=== PATIENT | female | born 1955 | race Caucasian/White ===

== ENCOUNTER → 2016-09-30 | Outpatient (CLI) | payer OTHER ==
[~2016-09-30] MED LIST: ALBUAER19 INH; BUPRTAB51 PO; CETI10TA10 PO; CHOL100027 PO; ESTR1CRE PV; FLAX100019 PO; GUAISYP5 PO; LORA-741 PO; SPIR25TA89 PO; SYN100 PO
--- NOTE | 2016-10-01 13:29 | MAMMOGRAPHY REPORT ---
BILATERAL DIGITAL SCREENING MAMMOGRAM TOMOSYNTHESIS WITH CAD: 09/30/2016 TECHNIQUE: Breast tomosynthesis in addition to standard 2D mammography was performed. Current study was also evaluated with a Computer Aided Detection (CAD) system. COMPARISON: Comparison is made to exams dated: 09/25/2015 mammogram, 09/19/2014 mammogram, 10/28/2011 mammogram, 11/02/2012 mammogram, 05/24/2013 mammogram, and 10/22/2010 mammogram - [facility]. BREAST COMPOSITION: The tissue of both breasts is heterogeneously dense, which may obscure small ma sses. FINDINGS: There is a possible small cluster of calcifications seen within the left central/9:[address], for which spot magnification views are recommended for further evaluation. The remainder of bot h breasts are stable compared to prior exams, without suspicious masses, calcifications, or areas of architectural distortion noted. IMPRESSION: ACR BI-RADS CATEGORY 0: INCOMPLETE EVALUATION: NEED ADDITIONAL IMAGING EVALUATION Possible cluster of calcifications in the left breast, for which additional imaging evaluation is re commended. The patient will be called to schedule an appointment. Approximately 10% of breast cancers are not detected with mammography. A negative mammographic repor t should not delay biopsy if a clinically suggestive mass is present. Evelyn Sow M.D. ah/:10/01/2016 07:51:18 Station Engineer: Donna NIEVES(Sam)(Sandy), [facility] letter sent: Addl Imaging 0 BI-RADS Code: ACR BI-RADS Category 0: Incomplete Evaluation: Need Additional Imaging Evaluation
== END | disposition home or self-care (01) ==
LOC: C.MAMM 17:27
PROVIDERS: ATTEND Internal Medicine
DX: Z12.31 Encounter for screening mammogram for malignant neoplasm of breast (principal); R92.1 Mammographic calcification found on diagnostic imaging of breast

== ENCOUNTER → 2016-10-12 | Outpatient (CLI) | payer OTHER ==
--- NOTE | 2016-10-12 12:40 | MAMMOGRAPHY REPORT ---
UNILATERAL LEFT DIGITAL DIAGNOSTIC MAMMOGRAM: 10/12/2016 CLINICAL HISTORY: Callback from screening mammogram for left breast calcifications. TECHNIQUE: Spot magnification left CC and ML views were obtained. COMPARISON: Comparison is made to exams dated: 09/30/2016 mammogram, 09/19/2014 mammogram, 09/25/2015 m ammogram, 11/18/2012 mammogram, 10/28/2011 mammogram, and 10/22/2010 mammogram - [facility]. BREAST COMPOSITION: The tissue of the left breast is heterogeneously dense, which may obscure small masses. FINDINGS: There is a small 5 mm cluster of faint calcifications in the left lower inner quadrant. On the cc view the calcifications are smudgy, and on the lateral view many of the calcifications dem onstrate layering, suggestive of benign milk of calcium. However, some of the calcifications are to o small to confirm layering. The calcifications were likely present on the August 2015 exam althou gh not clearly evident on exams prior to 2015. The calcifications are probably benign and likely re present milk of calcium. Recommend follow-up mammograms in 6 months to confirm stability. IMPRESSION: ACR-BI-RADS CATEGORY 3: PROBABLY BENIGN Small 5 mm cluster of calcifications in the left lower inner quadrant is probably benign and likely represents milk of calcium. Recommend follow-up diagnostic mammograms of the left breast in 6 month s to confirm stability on spot magnification views. The patient has been verbally notified of the results. Approximately 10% of breast cancers are not detected with mammography. A negative mammographic repor t should not delay biopsy if a clinically suggestive mass is present. Evelyn Sow M.D. ah/:10/12/2016 08:30:35 Cell Tender Helper: Amarilys NIEVES(R)(M), [facility] letter sent: Follow Up Recommended 3 BI-RADS Code: ACR-BI-RADS Category 3: Probably Benign
== END | disposition home or self-care (01) ==
LOC: C.MAMM 08:02
PROVIDERS: ATTEND Internal Medicine
DX: R92.1 Mammographic calcification found on diagnostic imaging of breast (principal)

== ENCOUNTER → 2017-02-26 | Outpatient (CLI) | payer OTHER ==
[~2017-02-26] MED LIST changes: +GADAVIST IV PRN
--- NOTE | 2017-02-26 13:31 | DIAGNOSTIC IMAGING REPORT ---
MRI OF THE BRAIN WITHOUT AND WITH IV CONTRAST CLINICAL HISTORY: SPEECH Disturbance, lt EXT PAIN mental status change COMPARISON STUDY: No previous studies for comparison. TECHNIQUE: Utilizing a 1.5 Catie magnet and dedicated coil, multiplanar, multiecho imaging of the brain was performed pre and postcontrast administration. IV administration of 5 mL of Gadavist contrast was uneventful. FINDINGS: Signal characteristics are unremarkable. Diffusion-weighted images show no acute ischemic event. Ventricular system is midline. No abnormal postcontrast enhancement IMPRESSION: Normal study. Electronically signed by: Aubrey Nunez M.D. 02/26/2017 1:30 PM Dictated Date/Time: 02/26/2017 1:27 PM
== END | disposition home or self-care (01) ==
LOC: C.MRIBC 12:20
PROVIDERS: ATTEND Nurse Practitioner
DX: R47.9 Unspecified speech disturbances (principal); M79.609 Pain in unspecified limb; R20.2 Paresthesia of skin

== ENCOUNTER → 2017-04-12 | Outpatient (CLI) | payer OTHER ==
[~2017-04-12] MED LIST changes: -GADAVIST IV PRN
--- NOTE | 2017-04-12 14:32 | MAMMOGRAPHY REPORT ---
UNILATERAL LEFT DIGITAL DIAGNOSTIC MAMMOGRAM TOMOSYNTHESIS WITH CAD: 04/12/2017 CLINICAL HISTORY: 61-year-old woman presents for follow-up the left breast with particular attention to a small grouping of microcalcifications in the lower inner quadrant which could represent benign m ilk of calcium. TECHNIQUE: Left CC and MLO 2-D and tomosynthesis images, spot magnification left CC and ML views were obtained. Current study was also evaluated with a Computer Aided Detection (CAD) system. COMPARISON: Comparison is made to exams dated: 10/12/2016 mammogram, 09/30/2016 mammogram, 09/25/2015 ma mmogram, 09/19/2014 mammogram, 11/02/2012 mammogram, and 10/28/2011 mammogram - [facility]. BREAST COMPOSITION: There are scattered areas of fibroglandular density in the left breast. FINDINGS: The parenchymal pattern of the left breast is similar to prior mammograms. No new suspicio us mass, developing asymmetry or focal area of architectural distortion is identified. Again noted i s a small, 5 mm grouping of punctate microcalcifications in the lower inner middle one third of the l eft breast. The microcatheter calcifications appear indistinct and smudgy on the spot magnification CC view, and some demonstrate tea cupping on the spot magnification ML view, suggesting benign milk o f calcium. These appear similar in number and configuration comparing to the prior spot magnificatio n views. Given that not all of the calcifications demonstrate layering, another short interval follo w-up diagnostic mammogram including spot magnification views is recommended to ensure longer stabilit y in 6 months. Annual right mammography will also be due at that time. IMPRESSION: ACR-BI-RADS CATEGORY 3: PROBABLY BENIGN The 5 mm grouping of microcalcifications in the lower inner quadrant of the left breast probably repr esents benign milk of calcium, given the smudgy appearance on the CC view and some demonstrate layeri ng on the spot magnification ML view. Another short interval follow-up left diagnostic mammogram inc luding spot magnification views is recommended in 6 months, to ensure longer stability. Annual right mammography will be due at that time. These results and recommendations were discussed with the patient at the time of the exam. Approximately 10% of breast cancers are not detected with mammography. A negative mammographic report should not delay biopsy if a clinically suggestive mass is present. Charlotte Pulido M.D. ay/:04/12/2017 08:45:33 Inorganic Chemistry Teacher: Enedelia MAZARIEGOS)(Sandy), [facility] letter sent: Follow Up Recommended 3 BI-RADS Code: ACR-BI-RADS Category 3: Probably Benign
== END | disposition home or self-care (01) ==
LOC: C.MAMM 07:40
PROVIDERS: ATTEND Internal Medicine
DX: R92.0 Mammographic microcalcification found on diagnostic imaging of breast (principal)

== ENCOUNTER → 2017-10-13 | Outpatient (CLI) | payer OTHER ==
--- NOTE | 2017-10-13 15:24 | MAMMOGRAPHY REPORT ---
BILATERAL DIGITAL DIAGNOSTIC MAMMOGRAM TOMOSYNTHESIS WITH CAD AND TARGETED LEFT ULTRASOUND: 10/13/2017 CLINICAL HISTORY: 62-year-old woman presents for follow-up of a small grouping of microcalcifications in the left breast. Also due for annual bilateral screening mammography. She also reported sporadi c episodes of wetness on her shirt upon waking up, that she is unsure if it represents sweats or nipp le discharge. TECHNIQUE: Bilateral breast tomosynthesis in addition to standard 2D mammography was performed. Spot magnification left CC and ML views were also obtained. Current study was also evaluated with a Comp uter Aided Detection (CAD) system. COMPARISON: Comparison is made to exams dated: 04/12/2017 mammogram, 10/12/2016 mammogram, 09/30/2016 ma mmogram, 09/25/2015 mammogram, 09/19/2014 mammogram, and 11/02/2012 mammogram - [facility]. BREAST COMPOSITION: There are scattered areas of fibroglandular density in both breasts. FINDINGS: The glandular pattern is similar to prior mammograms. No new masses, calcifications, areas of architectural distortion or asymmetries are identified bilaterally. The spot magnification views of the left breast redemonstrate a small cluster of microcalcifications in the lower inner anterior breast, measuring 5 mm. The morphology is somewhat smudgy in the CC projection but not all of the ca lcifications demonstrate layering in the ML projection to confirm benign milk of calcium. When domingo ring to prior spot magnification views, the calcifications appear unchanged in number and distributio n dating back to 10/12/2016, therefore likely benign. However, the patient reported possible left nipple discharge and if further evaluation with ultrasoun d was performed in the periareolar left breast. Real-time targeted high-resolution ultrasound was pe rformed in the periareolar and retroareolar left breast. Sonographically normal tissue is seen witho ut a discrete solid or cystic mass. IMPRESSION: ACR-BI-RADS CATEGORY 3: PROBABLY BENIGN, TARGETED ULTRASOUND ACR-BI-RADS CATEGORY 3: PRO BABLY BENIGN 1. Stable bilateral mammograms including a stable small 5 mm cluster of punctate and amorphous micro calcifications in the lower inner anterior left breast. Given that these microcalcifications have be en stable over the past year based on spot magnification views they are probably benign would typical ly recommend a 12 month follow-up diagnostic exam including spot magnification views to ensure long-t erm stability. 2. However, the patient reported possible left nipple discharge, and given that calcifications can r epresent a papilloma which could explain nipple discharge, if this is true nipple discharge I would r ecommend biopsy of the calcifications. Clinical follow-up is therefore needed to decipher between th e two and consider possible need for biopsy. These results and recommendations were discussed with the patient at the time of the exam. Approximately 10% of breast cancers are not detected with mammography. A negative mammographic report should not delay biopsy if a clinically suggestive mass is present. Charlotte Pulido M.D. ay/:10/13/2017 12:54:06 Tanning Consultant: Amarilys NIEVES(R)(Sandy), [facility] letter sent: Follow Up Recommended 3 BI-RADS Code: ACR-BI-RADS Category 3: Probably Benign Ultrasound BI-RADS: ACR-BI-RADS Category 3: Pr obably Benign
== END | disposition home or self-care (01) ==
LOC: C.MAMM 07:52
PROVIDERS: ATTEND Internal Medicine
DX: Z09 Encounter for follow-up examination after completed treatment for conditions other than malignant neoplasm (principal); R92.0 Mammographic microcalcification found on diagnostic imaging of breast

== ENCOUNTER 2024-09-12 07:23 | Inpatient (IN) ==
--- OUTSIDE RECORDS SUMMARY | 2024-09-12 07:31 | External Medical Summary | Summary of Care ---
Author Name Unknown Organization [facility] Address [address] [facility] [place] [address] Phone [phone] Care Team Providers Care Reconstructive Dentist Name Role Phone Em Fleming MD Primary Care Provider [phone] Reason for Visit * Reason Comments Follow Up Encounter Details Date Type Department Care Team (Latest Contact Info) Description 09/01/2024 10:20 AM EST Office Visit General Internal Medicine [facility] [address] [place] [address] Em Fleming MD 200 [facility] [place] [address] Upper respiratory tract infection, unspecified type*; Sore throat (viral); Sicca syndrome with keratoconjunctivitis (HCC); Intermittent asthma with reliever use up to twice per week, uncomplicated; Rhinitis, nonallergic; Postmenopausal atrophic vaginitis; Fibromyalgia; Chronic frontal sinusitis; Acquired hypothyroidism; Migraine without aura and without status migrainosus, not intractable; Deviated nasal septum; Snoring; Hyperlipidemia with target LDL less than 100; Encounter for long-term (current) use of medications; Secondary adrenal insufficiency (HCC); Degeneration of intervertebral disc of lumbar region with discogenic back pain and lower extremity pain Allergies Active Allergy Reactions Criticality Noted Date Comments Hydroxyzine 01/31/2020 Swelling of hands and feet Bee Stings 06/08/2010 Local swelling and puffiness, eyes turn yellow Chromium 01/09/2009 Hands swell and turn red and pt got hot all over Naltrexone-Bupropion Hcl Er Edema face/lips/tongue High 05/29/2023 Woozy, dizzy, blurry vision Duloxetine Hcl Other (Please comment) 11/02/2023 Headache, jaundice eyes Dog Dander 06/08/2012 Blows up all over Gabapentin Other (Please comment) 12/25/2019 Blurring of vision Iodinated Contrast Media 06/08/2010 IV site bubbled up and broke out Loratadine 10/18/2000 swelling, red rash Molds & Smuts 06/08/2012 Blows up with swelling Nickel High 10/27/2023 Other Reaction(s): WELTS Shellfish Allergy Hives 02/24/2017 Dizziness, nausea/vomiting, rash/hives with lobster age 18 Sulfa Antibiotics 10/18/2000 swelling, rash documented as of this encounter (statuses as of 09/06/2024) Medications Polyethyl Glyc-Propyl Glyc PF 0.4-0.3 % Ophthalmic Solution Instill into eye as needed for Other ( NEEDED). Active Pazeo 0.7 % Ophthalmic Solution (Olopatadine HCl) Instill into eye as needed for Other ( NEEDED). Active Lidocaine 5 % External Patch (Lidoderm) apply 1 patch TO THE AFFECTED AREA DAILY. LEAVE ON FOR 12 HOURS AND THEN OFF FOR 12 HOURS. 30 Patch 3 Active Additional Information Patient taking differently: apply 1 patch TO THE AFFECTED AREA NEEDED. LEAVE ON FOR 12 HOURS AND THEN OFF FOR 12 HOURS., Reported on 09/01/2024 Synthroid 75 MCG Oral Tablet Take 1 Tablet by mouth daily first thing in the morning. Active B-12 100 MCG Oral Tablet Take 1,000 mcg by mouth in the morning. 2 GUMMIES. Active ProAir HFA 108 (90 Base) MCG/ACT Inhalation Aerosol SolutionIndicatio ns:Cough USE 2 INHALATIONS EVERY 4 HOURS NEEDED FOR COUGH, SHORTNESS OF BREATH OR WHEEZING 51 g 1 024 Active Bromfenac Sodium 0.07 % Ophthalmic Solution INSTILL 1 DROP IN EACH EYE EVERY DAY 024 Active Vitamin D3 50 MCG (1999 UT) Oral Tablet Chewable Take by mouth. Active Zepbound 2.5 MG/0.5ML Subcutaneous Solution Auto-injector (Tirzepatide-Weig ht Management)Indica tions:Class 1 obesity due to excess calories with body mass index (BMI) of 30.0 to 30.9 in adult, unspecified whether serious comorbidity present Inject 2.5 mg under the skin once a week. 6 mL 1 024 Active DULoxetine HCl 30 MG Oral Capsule Delayed Release Particles (Cymbalta) Take by mouth. Acti ve Hydrocortisone 5 MG Oral Tablet (Cortef)Indicatio ns:Secondary adrenal insufficiency (HCC) Take 1.5 Tablets by mouth in the morning. 025 Active Pregabalin 50 MG Oral Capsule (Lyrica)Indicatio ns:Degeneration of intervertebral disc of lumbar region with discogenic back pain and lower extremity pain Take 1 Capsule by mouth at bedtime. In 1 week increase to twice a day 60 Capsule 2 025 Active Hydrocortisone 5 MG Oral Tablet (Cortef) Take 1 Tablet by mouth in the morning and 1 Tablet before bedtime. 1/2 tablet in morning. 024 2024 Discontinued documented as of this encounter (statuses as of 09/06/2024) Active Problems Problem Noted Date Diagnosed Date Fibromyalgia 08/01/2019 Postmenopausal atrophic vaginitis 06/17/2018 Snoring 12/23/2017 Intermittent asthma with rel iever use up to twice per week, uncomplicated 08/17/2017 Rhinitis, nonallergic 01/07/2016 Deviated nasal septum 08/01/2003 Chronic frontal sinusitis 08/01/2003 Adverse reaction to food 08/01/2003 Acquired hypothyroidism 08/08/2001 Migraine without aura and wi thout status migrainosus, not intractable 08/08/2001 Sicca syndrome with keratoconjunctivitis documented as of this encounter (statuses as of 09/06/2024) Resolved Problems Problem Noted Date Diagnosed Date Resolved Date Side effect of medication 05/29/2023 BMI 31.0-31.9,adult 12/03/2017 04/13/20 Mild persistent asthma without complication 01/07/2016 08/17/2017 Gastroesophageal reflux dise ase without esophagitis 01/07/2016 05/15/2020 Kidney disease, chronic, sta ge III (GFR 30-59 ml/min) 12/16/2015 12/19/2018 Overview: Per CKD protocol #1 Kidney disease, chronic, sta ge III (GFR 30-59 ml/min) 02/01/2014 05/24/2014 ADVANCE DIRECTIVE INFORMATION 02/27/2010 07/03/2024 Overview (02/27/2010): No, Advance Directive brochure given to patient. Vitamin D deficiency 01/15/2009 021 Dysfunction of eustachian tube 06/16/2008 06/30/2008 Moderate episode of recurren t major depressive disorder 01/15/2005 07/05/2024 NONALLERGIC RHINITIS 08/01/2003 017 documented as of this encounter (statuses as of 09/06/2024) Immunizations Name Administration Dates Next Due COVID-19 mRNA, LNP-s, No Pre serve, 2-Dose Series ([employer] 11/27/2020,10/29/2020 Pneumococcal Conjugate Vacci ne, 20-valent ([id number]) 03/12/2022 Pneumococcal Polysaccharide PPV23 (Pneumovax) 12/03/2017 Seasonal Influenza Vac., MDV , IM, 0.5 mL (Fluzone) 06/07/2015,06/11/2014,06/14/2013,06/15,06/28/2011,06/03/2009,06/28/2007 Seasonal Influenza, MDCK, Tr ivalent, PF, (Flucelvax) 07/17/2017 Seasonal Influenza, PF, 6 M & above, IM , (FluLaval or Fluzone) 06/22/2019 Seasonal Influenza, QUAD, wi th Preserv, 6 mons & Above, 0.5 mL, IM 04/30/2020 Seasonal Influenza, Quadriva lent, No Preserve, IM 06/26/2016 TDAP (age 10 and older)(Boostrix) 03/31/2012 TDAP, Age 7 and older, IM (Adacel) 02/15/2006 documented as of this encounter Social History Tobacco Use Types Packs/Day Years Used Date Smoking Tobacco: Never Smokeless Tobacco: Never Comments:no passive smoke at home/parents smoked in her childhood Alcohol Use Standard Drinks/Week Comments Yes 0 (1 standard drink = 0.6 oz pur e alcohol) rare - one/month PHQ-2 Answer Date Recorded PHQ Adult Total Score 1 06/27/2024 Hunger Vital Sign Answer Date Recorded Worried About Running Out of Food in the Last Ye ar Never true 04/29/2020 Ran Out of Food in the Last Year Never true 04/29/2020 Childcare Answer Date Recorded Do you feel overwhelmed with taking care of a child, family member or friend? No 05/29/2023 Does your family need help f inding childcare? (Household - for ages 0-17 years) Not on file 05/29/2023 Clothing Answer Date Recorded Have you been unable to get clothing when it was really needed? No 05/29/2023 Is your family able to get c lothes or diapers when needed? (Household - for ages 0-17 years) Not on file 05/29/2023 Personal Safety Answer Date Recorded Do you feel unsafe or have concerns for your saf ety? No 05/29/2023 Do you have concerns for you r family's safety? (Household - for ages 0-17 years) Not on file 05/29/2023 Utilities Answer Date Recorded Do you have trouble paying y our heating, water, or electric bill? No 05/29/2023 Is your family able to pay t he heat, water, or electric bill? (Household - for ages 0-17 years) Not on file 05/29/2023 Does your family have access to good internet? (Household - for ages 0-17 years) Not on file 05/29/2023 Employment Status Answer Date Recorded Are you unemployed or without regular income? No 05/29/2023 Does the household have a re gular source of income? (Household - for ages 0-17 years) Not on file 05/29/2023 Social Connections Answer Date Recorded How often do you feel lonely or isolated from those around you? Sometimes 05/29/2023 Financial Resource Strain Answer Date R ecorded Do you have any trouble payi ng for your medications, or do you think you might in the future? No 05/29/2023 Does your family have troubl e paying for medicine? (Household - for ages 0-17 years) Not on file 05/29/2023 Transportation Needs Answer Date Record ed READ ONLY Do you have troubl e getting a ride to medical visits or work? Never True 05/29/2023 Does your family have a hard time getting a ride to doctors visits? (Household - for ages 0-17 years) Not on file 05/29/2023 Has lack of transportation k ept you from medical appointments, meetings, work, or from getting things needed for daily living? Check all that apply. (Adult - for ages 18 years and over) Not on file 05/29/2023 Do you (or your family) have trouble finding or paying for a ride (transportation)? (Household - for ages 0-17 years) Not on file 05/29/2023 Housing Stability Answer Date Recorded Do you currently live in a s helter or have no steady place to sleep at night? No 05/29/2023 READ ONLY Do you think you a re at risk of becoming homeless? No 05/29/2023 Does your family worry about paying for your home or becoming homeless? (Household - for ages 0-17 years) Not on file 0 05/29/2023 Are you homeless or worried that you might be in the future? (Adult - for ages 18 years and over) Not on file Are you (or your family) beatrice eless or worried that you might be in the future? (Household - for ages 0-17 years) Not on file Food Insecurity Answer Date Recorded Do you need food for this week? No 05/29/2023 Are you able to get enough f ood for your family? (Household - for ages 0-17 years) Not on file 05/29/2023 Does your family need food t his week? (Household - for ages 0-17 years) Not on file 05/29/2023 Do you always have enough fo od for your family? 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 Not on file Not on file Not on fi le Not on file Not on file Not on file Not on file documented as of this encounter Last Filed Vital Signs Vital Sign Reading Time Taken Comments Blood Pressure 102/70 09/01/2024 10:15 AM EST Pulse 93 09/01/2024 10:15 AM EST Temperature 37.5 C (99.5 F) 09/01/2024 10:[address] Respiratory Rate 18 09/01/2024 10:15 AM EST Oxygen Saturation 98% 09/01/2024 10:15 AM EST Inhaled Oxygen Concentration - - Weight 76.8 kg (169 lb 6.4 oz) 09/01/2024 10:15 AM EST Height 165.1 cm (5' 5") 09/01/2024 10:15 AM EST Body Mass Index 28.19 09/01/2024 10:15 AM EST documented in this encounter Progress Notes * Em Fleming MD - 09/01/2024 10:32 AM EST Images from the original note were not included. History of Present Illness Payton Lai is a 68 year old female that presents for Follow Up 68 year-old female with PMH significant for hypothyroidism, chronic sinusitis, depression,HH with Gerd presents here for recheck. Acute concern :- -discuss recent health events, discuss medication, and pain management -interim had multiple steroid injections and some oral courses for joint pain and arthritis and bulging disc with radiculopathy was diagnosed with secondary adrenal insufficiency due to multiple steroid and on hydrocortisone which is helping a lot. Seen and being followed by endo at [facility] to have back pain radiating to her Rt hip and leg with numbness . Worse in an and at night . Injections been not much helpful . Didn't tolerate gabapentin -cold for last 5 days and chest tightness since last night Interimmedical history : as above Watching diet and exercise : not much Routine labs : due Routine HM : not uptodate on vaccines Chronic medical problem: reviewed and stable Viral Upper Respiratory Infection This is a new problem. The current episode started in the past 7 days (5 days). The problem has been gradually worsening. There has been no fever. Associated symptoms include chest pain (tightness), congestion, coughing, ear pain (left), headaches, joint pain, rhinorrhea, sinus pain, sneezing, a sore throat and wheezing. Pertinent negatives include no diarrhea. Associated symptoms comments: Bodyaches . She has tried increased fluids, acetaminophen and decongestant for the symptoms. The treatment provided no relief. Physical Exam Vitals: 09/01/24 1015 Temp: 99.5 F (37.5 C) Pulse: 93 Resp: 18 SpO2: 98% BP: 102/70 BMI: 28.19 Physical Exam Constitutional: General: She is not in acute distress. Appearance: Normal appearance. HENT: Head: Normocephalic. Right Ear: Ear canal and external ear normal. Left Ear: Ear canal and external ear normal. Nose: Congestion and rhinorrhea present. Mouth/Throat: Mouth: Mucous membranes are moist. Pharynx: Posterior oropharyngeal erythema present. No oropharyngeal exudate. Cardiovascular: Rate and Rhythm: Normal rate and regular rhythm. Heart sounds: No murmur heard. No gallop. Pulmonary: Effort: Pulmonary effort is normal. Breath sounds: No stridor. Wheezing present. No rhonchi. Chest: Chest wall: No tenderness. Abdominal: General: There is no distension. Palpations: Abdomen is soft. There is no mass. Tenderness: There is no abdominal tenderness. Musculoskeletal: General: No swelling or tenderness. Cervical back: No rigidity or tenderness. Lymphadenopathy: Cervical: No cervical adenopathy. Neurological: Mental Status: She is alert. I have reviewed the following results: Assessment and Plan Upper respiratory tract infection, unspecified type Natural course of viral infection discussed Conservative measures like rest, fluid, humidifier in room Saline nasal drop 2-3 times a day OTC decongestant for congestion Tylenol every 6 hours for fever Mucinex twice a day with a glass of water - RESPIRATORY PATHOGEN PANEL, PCR; Future - RESPIRATORY PATHOGEN PANEL, PCR Await PCR reuslt Sore throat (viral) - GROUP A STREP PCR Sicca syndrome with keratoconjunctivitis (HCC) Intermittent asthma with reliever use up to twice per week, uncomplicated Now flared up with cold Reminded to take albuterol through spacer every hours Rhinitis, nonallergic Flonase Postmenopausal atrophic vaginitis Fibromyalgia Chronic frontal sinusitis Acquired hypothyroidism - TSH; Future Migraine without aura and without status migrainosus, not intractable Deviated nasal septum Snoring Hyperlipidemia with target LDL less than 100 - COMPREHENSIVE METABOLIC PANEL; Future - LIPID PANEL WITH DIRECT LDL IF TG IS HIGH; Future Encounter for long-term (current) use of medications - HEMOGLOBIN A1C; Future Secondary adrenal insufficiency (HCC) Being managed by endo Degeneration of intervertebral disc of lumbar region with discogenic back pain and lower extremity pain Can increase Cymbalta if needed I have reviewed the patients controlled substance dispensing history in the Prescription Drug Monitoring Program in compliance with the [facility] regulations before prescribing a controlled substance. - Pregabalin 50 MG Oral Capsule (Lyrica); Take 1 Capsule by mouth at bedtime. In 1 week increase totwice a day Wrap-Up Time: I spent a total of 40-54 minutes (exact time 45 mins) on the date of service in preparation, delivery, and documentation of the care provided to Payton Lai excluding any time spent in the performance of separately billed services. documented in this encounter Nursing Notes * Mima Wilburn CMA - 09/01/2024 10:08 AM EST Pt here for follow up. Pt would like to discuss recent health events, discuss medication, and pain management Pt is c/o cold symptoms. Productive cough, sinus drainage, sore throat, chest feels heavy, headaches, fever, since last Wednesday. Pt taking Tylenol. Pt denies taking an at home COVID test Respiratory panel and strep A complete documented in this encounter Plan of Treatment Upcoming Encounters Date Type Department Care Team (Late st Contact Info) Description 10/25/2024 11:20 AM EST Nutrition Services Nutrition & Weight Management, [facility] [address] [place] [address] Nae Carrillo RDN [address] [place] [address] 12/01/2024 9:40 AM EDT Office Visit General Internal Medicine [facility] [place] [address] [place] [address] Em Fleming MD [address] [facility] [place] [address] 12/26/2024 9:40 AM EDT Office Visit General Internal Medicine [facility] [place] [address] [facility] [place] [address] Em Fleming MD [address] [facility] [place] [address] 01/15/2025 12:50 PM EDT Office Visit Dermatology [facility] [place] [address] [place] [address] Edilma Maier PA-C [address] [place] [address] 03/30/2025 9:15 AM EDT Office Visit Dermatology [facility] [place] [address] [facility] [place] [address] Salvatore Preciado MD [address] [facility] [place] [address] Scheduled Procedures Name Priority Associated Diagnoses Date/Ti me COLONOSCOPY FLEXIBLE PROXIMA L DIAGNOSTIC Recall History of colonic polyps Health Maintenance Due Date Last Done Comments Cologuard 2000 Fecal Occult Blood Test 2000 Sigmoidoscopy 2000 Zoster Vaccines (1 of 2) 2005 Adult Wellness Visit 2021 DTap/Tdap Vaccines (3 - Td or Tdap) 03/31/2022 03/31/2012, 02/15/2006 Influenza Vaccine (FLU shot) (#1) 2024 04/30/2020, 06/22/2019, 07/17/2017, Additional history exists Depression Screening 06/27/2025 06/27/2024 Mammogram 07/17/2025 07/17/2024, 06/30, 07/12/2023, Additional history exists TSH 09/05/2025 09/05/2024, 04/2023, 05/25/2023, Additional history exists Colonoscopy 03/12/2027 03/12/2020, 02/27, 06/21/2009 Colorectal Cancer Screening 03/12/2027 Diabetes Screening 09/05/2027 09/05/2024, 0 09/05/2024, 08/13/2023, Additional history exists DXA Scan 10/15/2027 10/15/2020, 09/30, 07/13/2012, Additional history exists Lipid Panel 09/05/2029 09/05/2024, 02/27, 03/19/2022, Additional history exists COVID-19 Vaccine Discontinued 11/27/2020, 10/29/2020 Pneumococcal Vaccine: 50+ Years Completed 03/12/2022, 12/03/2017 HPV (Gardasil) Vaccine Aged Out No lo nger eligible based on patient's age to complete this topic Hepatitis B Vaccine Aged Out No longe r eligible based on patient's age to complete this topic MENINGOCOCCAL (MENACTRA/MENVEO) Aged Out No longer eligible based on patient's age to complete this topic documented as of this encounter Medical Devices Not on filedocumented as of this encounter Procedures Procedure Name Priority Date/Time Associated Diagnosis Comments RESPIRATORY PATHOGEN PANEL, PCR Routine 09/01/2024 10:56 AM EST Upper respiratory tract infection, unspecified type GROUP A STREP PCR Routine 09/01/2024 10: 56 AM EST Sore throat (viral) documented in this encounter Results * (ABNORMAL) TSH (09/05/2024 11:20 AM EST) TSH 10.80(H) 0.27 - 4.20 uIU/mL 09/05/2024 9:17 PM EST LABORATORY [facility] Blood Venous blood specimen / Unknown Venipuncture / Unknown 09/05/2024 11:20 AM EST 09/05/2024 11:20 AM EST Em Fleming MD LAB BLOOD ORDERABLES Final Res ult Performing Organization Address [facility] de Phone Number LABORATORY [facility] [address] [place] [address] * HEMOGLOBIN A1C (09/05/2024 11:20 AM EST) Hemoglobin A1C 5.5 4.0 - 5.6 % 09/05/2024 6:29 PM EST LABORATORY [facility] Comment:The use of HbA1c to monitor glycemic status is based on normal hemoglobin and HbA composition. This test should not be used in patients with abnormal hemoglobin that affects the half life of the red blood cell or the in vivo glycation rates. Estimated Average Glucose 111 <126 mg/dL 09/05/2024 6:29 PM EST LABORATORY [facility] Blood Venous blood specimen / Unknown Venipuncture / Unknown 09/05/2024 11:20 AM EST 09/05/2024 11:20 AM EST Em Fleming MD LAB BLOOD ORDERABLES Final Res ult Performing Organization Address [facility] de Phone Number LABORATORY [facility] [address] [place] [address] * (ABNORMAL) LIPID PANEL WITH DIRECT LDL IF TG IS HIGH (09/05/2024 11:20 AM EST) Triglycerides 116 <=174 mg/dL 09/05/2024 8:31 PM EST LABORATORY [facility] Comment: Triglyceride Reference Ranges (mg/dL): <150 Acceptable 150-174 Borderline high 175-499 High >=500 Very high Cholesterol 155 <200 mg/dL 09/05/2024 8:31 PM EST LABORATORY [facility] Comment: Total Cholesterol Reference Ranges (mg/dL): <200 Desirable 200-239 Borderline high >=240 High HDL Cholesterol 47(L) >49 mg/dL 8:31 PM EST LABORATORY [facility] Comment: HDL Cholesterol Reference Ranges (mg/dL): >=60 High (Desirable) <50 Low (Undesirable) For Females <40 Low (Undesirable) For Males Non-HDL Cholesterol 108 <=159 mg/dL 09/05/2024 8:31 PM EST LABORATORY [facility] Comment: Non-HDL Cholesterol Reference Range (mg/dL): <100 Target level for high risk ASCVD patient <130 Optimal for general population 130-159 Near optimal for general population 160-189 Borderline High 190-219 High >=220 Very High LDL Cholesterol 85 <=129 mg/dL 09/05/2024 8:31 PM EST LABORATORY [facility] Comment: LDL Cholesterol Reference Ranges (mg/dL): <70 Target level for high risk ASCVD patient <100 Optimal for general population 100-129 Near optimal for general population 130-159 Borderline high 160-189 High >=190 Very high Blood Venous blood specimen / Unknown Venipuncture / Unknown 09/05/2024 11:20 AM EST 09/05/2024 11:20 AM EST us Em Fleming MD LAB BLOOD ORDERABLES Final Res ult LABORATORY [facility] [address] [place] [address] * COMPREHENSIVE METABOLIC PANEL (09/05/2024 11:20 AM EST) BUN 17 6 - 20 mg/dL 09/05/2024 12:43 PM [facility] 56- CREATININE 0.9 0.5 - 1.0 mg/dL 09/05/2024 12:43 PM [facility] 56- EGFR 69 >=60 mL/min 09/05/2024 12:43 PM [facility] 56- Comment:eGFR is calculated b ased on the CKD-EPI 2020 equation. SODIUM 144 135 - 146 mmol/L 09/05/2024 12:43 PM [facility] 56- POTASSIUM 4.1 3.5 - 5.1 mmol/L 09/05/2024 12:43 PM [facility] 56- CHLORIDE 102 98 - 107 mmol/L 09/05/2024 12:43 PM [facility] 56- CO2 31 22 - 32 mmol/L 09/05/2024 12:43 PM [facility] 56- ANION GAP 11 7 - 15 mmol/L 09/05/2024 12:43 PM [facility] 56- GLUCOSE 80 70 - 120 mg/dL 09/05/2024 12:43 PM EST [facility] 56 Albumin 4.3 3.8 - 5.0 g/dL 09/05/2024 12:43 PM EST [address] AST 19 10 - 35 U/L 09/05/2024 12:43 PM EST [address] Alkaline Phosphatase 88 35 - 130 U/L 09/05/2024 12:43 PM EST [address] Bilirubin, Total 0.2 <=1.2 mg/dL 09/05/2024 12:43 PM EST [address] CALCIUM 9.7 8.4 - 10.2 mg/dL 09/05/2024 12:43 PM EST [address] Protein 6.7 6.0 - 8.3 g/dL 09/05/2024 12:43 PM EST [address] ALT 13 10 - 35 U/L 09/05/2024 12:[address] Blood Venous blood specimen / Unknown Venipuncture / Unknown 09/05/2024 11:20 AM EST 09/05/2024 11:20 AM EST us Em Fleming MD LAB BLOOD ORDERABLES Final Res ult [facility] [address]- [address] [place] [address] * (ABNORMAL) RESPIRATORY PATHOGEN PANEL, PCR (09/01/2024 10:56 AM EST) Adenovirus by PCR Negative Negative 025 7:38 PM EST [facility] [facility] Coronavirus 229E by PCR Negative Negative 09/01/2024 7:38 PM EST [facility] Coronavirus HKU1 by PCR Negative Negative 09/01/2024 7:38 PM EST [facility] Coronavirus NL63 by PCR Negative Negative 09/01/2024 7:38 PM EST [facility] Coronavirus OC43 by PCR Negative Negative 09/01/2024 7:38 PM EST [facility] Coronavirus SARS-CoV-2 by PCR Negative Negative 09/01/2024 7:38 PM EST [facility] Human Metapneumovirus by PCR Negative Negative 09/01/2024 7:38 PM EST [facility] Rhinovirus/Enterov irus by PCR Negative Negative 09/01/2024 7:38 PM EST [facility] Influenza A Virus by PCR Negative Negative 09/01/2024 7:38 PM EST [facility] Influenza B Virus by PCR Negative Negative 09/01/2024 7:38 PM EST [facility] Parainfluenza Virus 1 by PCR Negative Negative 09/01/2024 7:38 PM EST [facility] Parainfluenza Virus 2 by PCR Positive(A) Negative 09/01/2024 7:38 PM EST [facility] Comment:Parainfluenza virus 2 detected by PCR (amplified probe). Parainfluenza Virus 3 by PCR Negative Negative 09/01/2024 7:38 PM EST [facility] Parainfluenza Virus 4 by PCR Negative Negative 09/01/2024 7:38 PM EST [facility] Respiratory Syncytial Virus by PCR Negative Negative 09/01/2024 7:38 PM EST [facility] Bordetella pertussis by PCR Negative Negative 09/01/2024 7:38 PM EST [facility] Chlamydia pneumoniae by PCR Negative Negative 09/01/2024 7:38 PM EST [facility] Mycoplasma pneumoniae by PCR Negative Negative 09/01/2024 7:38 PM EST [facility] Bordetella parapertussis by PCR Negative Negative 09/01/2024 7:38 PM EST [facility] Comment: The primers that detect Rhinovirus may cross react with some Enterorviruses. The validation of bronchial specimens, tracheal aspirates, and throats for this assay was developed and performance characteristics determined by [employer]. The validation of alternate specimen types has not been cleared or approved by the U.S. Food and Drug Administration (FDA). It has been determined that such clearance or approval is not necessary. Upper Respiratory Nasopharyngeal swab / Unknown Non-blood Collection / Unknown 09/01/2024 10:56 AM EST 09/01/2024 11:04 AM EST Em Fleming MD LAB MICRO - GENERAL ORDERABLES Final Result [facility] [address] [place] [address] * GROUP A STREP PCR (09/01/2024 10:56 AM EST) Group A Strep PCR Result Negative. No Group A Streptococcus detected by PCR (amplified probe). Negative 09/01/2024 8:57 PM EST [facility] Comment:This test was develo ped and its performance characteristics determined by [employer]. It has not been cleared or approved by the FDA. The laboratory is regulated under CLIA as qualified to perform high-complexity testing. This test is used for clinical purposes. It should not be regarded as investigational or for research. Swab Throat swab / Unknown 09/01/2024 10:56 AM EST 09/01/2024 11:04 AM EST Em Fleming MD LAB MICRO - GENERAL ORDERABLES Final Result [facility] [address] [place] [address] documented in this encounter Visit Diagnoses Diagnosis Upper respiratory tract infection, unspecified type- Primary Sore throat (viral) Acute pharyngitis Sicca syndrome with keratoconjunctivitis (HCC) Sicca syndrome Intermittent asthma with reliever use up to twice per week, uncomplicated Rhinitis, nonallergic Chronic rhinitis Postmenopausal atrophic vaginitis Fibromyalgia Mylagia and myositis, unspecified Chronic frontal sinusitis Acquired hypothyroidism Unspecified hypothyroidism Migraine without aura and without status migrainosus, not intractable Migraine without aura, without mention of intractable migraine without mention of status migrainosus Deviated nasal septum Snoring Other dyspnea and respiratory abnormality Hyperlipidemia with target LDL less than 100 Other and unspecified hyperlipidemia Encounter for long-term (current) use of medications Encounter for long-term (current) use of other medications Secondary adrenal insufficiency (HCC) Glucocorticoid deficiency Degeneration of intervertebral disc of lumbar region with discogenic back pain and lower extremity pain documented in this encounter Additional Health Concerns Infection Onset Date Last Indicated Resolved Time Respiratory Rule-Out 09/01/2024 09/01/2024 025 7:38 PM EST documented as of this encounter Care Teams Reconstructive Dentist Relationship Specialty Start Date End Date Em Fleming MD [address] [place] [address] PCP - General Internal Medicine 02/19/12 documented as of this encounter
--- OUTSIDE RECORDS SUMMARY | 2024-09-12 07:32 | External Medical Summary | Summary of Care ---
Author Name Unknown Organization [facility] Address [address] [facility] [place] [address] Phone [phone] Care Team Providers Care Form Setter Helper Name Role Phone Em Fleming MD Primary Care Provider [phone] Reason for Visit * Reason Comments Follow Up L knee Encounter Details Date Type Department Care Team (Latest Contact Info) Description 08/15/2024 3:30 PM EST Office Visit Orthopaedics [facility] [address] [facility] [place] [address] Fahad Hayes MD 132 [facility] [place] [address] Primary osteoarthritis of left knee* Allergies Active Allergy Reactions Criticality Noted Date [...] as of this encounter (statuses as of 08/15/2024) Medications Polyethyl Glyc-Propyl Glyc PF 0.4-0.3 % [...] OFF FOR 12 HOURS. 30 Patch 3 4 Active Additional Information Patient taking differently: apply 1 patch TO THE AFFECTED AREA NEEDED. LEAVE ON FOR 12 HOURS AND THEN OFF FOR 12 HOURS., Reported on 08/09/2024 Synthroid 75 MCG Oral Tablet Take 1 Tablet by mouth daily first thing in the morning. 4 Active B-12 100 MCG Oral Tablet Take 1,000 mcg by mouth in the morning. 2 GUMMIES. Active Hydrocortisone 5 MG Oral Tablet (Cortef) Take 1 Tablet by mouth in the morning and 1 Tablet before bedtime. 1/2 tablet in morning. 4 Active ProAir HFA 108 (90 Base) MCG/ACT Inhalation Aerosol SolutionIndicati ons:Cough USE 2 INHALATIONS EVERY 4 HOURS NEEDED FOR COUGH, SHORTNESS OF BREATH OR WHEEZING 51 g 1 4 Active Bromfenac Sodium 0.07 % Ophthalmic Solution INSTILL 1 DROP IN EACH EYE EVERY DAY 4 Active Vitamin D3 50 MCG (2000 UT) Oral Tablet Chewable Take by mouth. Activ e Zepbound 2.5 MG/0.5ML Subcutaneous Solution Auto-injector ([place] t Management)Indic ations:Class 1 obesity due to excess calories with body mass index (BMI) of 30.0 to 30.9 in adult, unspecified whether serious comorbidity present Inject 2.5 mg under the skin once a week. 6 mL 1 4 Active Hospital, Clinic, or Other Facility Administered Medication Ordered Dose Route Frequency Start Date End Date Status sodium hyaluronate (Gelsyn-3) 16.8 MG/2ML inj 16.8 mgIndications:Primary osteoarthritis of left knee 16.8 mg IX ONCE 08/15/2024 08/15/20 24 Active documented as of this encounter (statuses as of 08/15/2024) Active Problems Problem Noted Date Diagnosed Date Side effect of medication 05/29/2023 Fibromyalgia 08/01/2019 Postmenopausal atrophic vaginitis 06/17/2018 Snoring 12/23/2017 Intermittent asthma with rel iever use up to twice per week, uncomplicated 08/17/2017 Rhinitis, nonallergic 01/07/2016 Deviated nasal septum 08/01/2003 Chronic frontal sinusitis 08/01/2003 Adverse reaction to food 08/01/2003 Acquired hypothyroidism 08/08/2001 Migraine without aura and wi thout status migrainosus, not intractable 08/08/2001 Sicca syndrome with keratoconjunctivitis documented as of this encounter (statuses as of 08/15/2024) Resolved Problems Problem Noted Date Diagnosed Date Resolved Date BMI 31.0-31.9,adult 12/03/2017 04/13/20 19 Mild persistent asthma without complication 01/07/2016 08/17/2017 [...] as of this encounter (statuses as of 08/15/2024) Immunizations Name Administration Dates Next Due COVID-19 mRNA, LNP-s, No Pre serve, 2-Dose Series (Pfizer) 11/27/2020,10/29/2020 Pneumococcal Conjugate Vacci ne, 20-valent ([id number]) 03/12/2022 Pneumococcal Polysaccharide PPV23 (Pneumovax) 12/03/2017 Seasonal [...] 05/29/2023 Does the household have a re lar source of income? 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 If these injections help they can be done every 6 months if needed. Please remember that prior authorization is needed obtained through nursing before these visits can be scheduled. documented in this encounter Progress Notes * Fahad Hayes MD - 08/15/2024 9:21 AM EST Diagnosis: OA Left knee. The patient is here for the Third of a series of Gelsyn injections. There is no sign of infection in the injected knee. A timeout was called immediately prior to the procedure, to confirm the correct patient, procedure,and site. The site was marked by the physician prior to the procedure. Site was identified: knee: Left Procedure: Under sterile fashion, a 2 ml vial of Gelsyn was injected intra- articularly into the knee. Patient reported some increased pain following the injection but was able to limp out of the office Note: This also occurred after her 1st two injections Note: Inferomedial port used today as she had increased pain following the previous 2 injections when inferolateral port was used Assessment: OA Left knee. Plan: The patient will message me in 6 weeks. Aware these can be done every 6 months if needed. Also aware that prior authorization is needed before scheduling these injections. Fahad Hayes MD Primary Care Sports Medicine Orthopaedics [address] [address] documented in this encounter Nursing Notes * Enedelia Walker LPN - 08/15/2024 9:16 AM EST -f/u -L knee -THIRD of a series Gelsyn injections -Pt is unaccompanied Beata Ramires LPN documented in this encounter Plan of Treatment Upcoming Encounters Date Type Department Care Team (Late st Contact Info) Description 08/15/2024 3:30 PM EST Office Visit Dermatology [facility] [address] [place] [address] Salvatore Preciado MD [address] [place] [address] [address] 10/25/2024 11:20 AM EST Nutrition Services Nutrition & Weight Management, [facility] [address] [place] [address] Nae Carrillo RDN [address] [place] [address] 12/26/2024 9:40 AM EDT Office Visit General Internal Medicine [facility] [address] [place] [address] [address] Em Fleming MD [facility] [place] [address] 01/15/2025 12:50 PM EDT Office Visit Dermatology [facility] [address] [place] [address] Edilma Maier PA-C [address] [place] [address] Scheduled Procedures Name Priority Associated Diagnoses Date/Ti [...] 2024 04/30/2020, 06/22/2019, 07/17/2017, Additional history exists TSH 07/08/2024 07/08/2023, 05/01, 03/16/2023, Additional history exists Depression Screening 06/27/2025 06/27/2024 Mammogram 07/17/2025 07/17/2024, 06/30, 07/12/2023, Additional history exists Diabetes Screening 08/13/2026 08/13/2023, 1 10/11/2022, 03/16/2023, Additional history exists Colonoscopy 03/12/2027 03/12/2020, 02/27, 06/21/2009 Colorectal Cancer Screening 03/12/2027 DXA Scan 10/15/2027 10/15/2020, 09/30, 07/13/2012, Additional history exists Lipid Panel 03/16/2028 03/16/2023, 02/28, 02/26/2021, Additional history exists COVID-19 Vaccine Discontinued 11/27/2020, 10/29/2020 Pneumococcal Vaccine: 65+ Years Completed 03/12/2022, 12/03/2017 HPV (Gardasil) Vaccine [...] Not on filedocumented as of this encounter Visit Diagnoses Diagnosis Primary osteoarthritis of left knee- Primary Primary localized osteoarthrosis, lower leg documented in this encounter Care Teams Form Setter Helper Relationship Specialty Start Date End Date Em Fleming MD [address] [place] [address] PCP - General Internal Medicine 02/19/12 documented as of this encounter
--- OUTSIDE RECORDS SUMMARY | 2024-09-12 07:32 | External Medical Summary ---
Author Name Unknown Address Unknown Organization K01:[facility]ATORY [facility] [place] - [address] [facility] [address] Laboratory Report Ordering Provider Test Date Status NORMA ROWANALI 09/05/2024 11:20:23 Final Observation Date Value Abnormality Reference (Units ) Status Triglyceride 09/05/2024 11:20:23 116 <=174 ( mg/dL) Final Triglyceride Reference Range s (mg/dL):
<150 Acceptable
150-174 Borderline high
175-499 High
>=500 Very high Cholesterol 09/05/2024 11:20:23 155 <200 (mg /dL) Final Total Cholesterol Reference Ranges (mg/dL):
<200 Desirable
200-239 Borderline high
>=240 High HDL 09/05/2024 11:20:23 47 Below low normal >49 (mg/dL) Final HDL Cholesterol Reference Ra nges (mg/dL):
>=60 High (Desirable)
<50 Low (Undesirable) For Females
<40 Low (Undesirable) For Males NON-HDL CHOLESTEROL 09/05/2024 11:20:23 108 <=159 (mg/dL) Final Non-HDL Cholesterol Referenc e Range (mg/dL):
<100 Target level for high risk ASCVD patient
<130 Optimal for general population
130-159 Near optimal for general population
160-189 Borderline High
190-219 High
>=220 Very High LDL, (calculated) 09/05/2024 11:20:23 85 <= 129 (mg/dL) Final LDL Cholesterol Reference Ra nges (mg/dL):
<70 Target level for high risk ASCVD patient
<100 Optimal for general population
100-129 Near optimal for general population
130-159 Borderline high
160-189 High
>=190 Very high Performing Location [facility]ORY [facility] [place] - [address] [facility] [address]
--- OUTSIDE RECORDS SUMMARY | 2024-09-12 07:32 | External Medical Summary | Summary of Care ---
Author Name Unknown Organization [facility] Address [address] [facility] [place] [address] Phone [phone] Care Team Providers Care Powerhouse Mechanic Helper Name Role Phone Em Fleming MD Primary Care Provider [phone] Reason for Visit * Reason Comments Follow Up L knee Encounter Details Date Type Department Care Team (Latest Contact Info) Description 08/15/2024 3:30 PM EST Office Visit Orthopaedics 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 Not on [...] Hayes MD Primary Care Sports Medicine Orthopaedics [address] [address] documented in this encounter Nursing Notes * Enedelia Walker LPN - 08/15/2024 9:16 AM EST -f/u -L knee -THIRD of a series Gelsyn injections -Pt is unaccompanied Beata Ramires LPN documented in this encounter Plan of Treatment Upcoming Encounters Date Type Department Care Team (Late st Contact Info) Description 08/15/2024 3:15 PM EST Office Visit Dermatology [facility] [place] [address] [place] [address] Salvatore Preciado MD [address] [place] [place] [address] 10/25/2024 11:20 AM EST Nutrition Services Nutrition & Weight Management, [facility] [address] [place] [address] Nae Carrillo RDN [address] [place] [address] 12/26/2024 9:40 AM EDT Office Visit General Internal Medicine [facility] [address] [place] [address] [address] Em Fleming MD 200 [facility] [place] [address] 01/15/2025 12:50 PM EDT Office Visit Dermatology [facility] [address] [place] [address] Edilma Maier PA-C [address] [place] [address] Scheduled Procedures Name Priority Associated Diagnoses Date/Ti [...] osteoarthrosis, lower leg documented in this encounter Administered Medications Inactive Administered Medications - up to 3 most recent administrations Medication Order MAR Action Action Date Dose Rate Site sodium hyaluronate (Gelsyn-3) 16.8 MG/2ML inj 16.8 mg 16.8 mg, Intra-Articular, ONCE, On 08/15/24 at 1030, For 1 doseIndications:Primary osteoarthritis of left knee Given 08/15/2024 1:46 PM EST 16.8 mg Knee Left documented in this encounter Care Teams Powerhouse Mechanic Helper Relationship Specialty Start Date End Date Em Fleming MD 200 [facility] [place] [address] PCP - General Internal Medicine 02/19/12 documented as of this encounter
--- OUTSIDE RECORDS SUMMARY | 2024-09-12 07:32 | External Medical Summary ---
Author Name Unknown Address Unknown Organization K01:[facility]ORY [facility] - [address] [place] [address] Laboratory Report Ordering Provider Test Date Status EMMA ROWAN 09/05/2024 11:20:23 Final Observation Date Value Abnormality Reference (Units ) Status HbA1C 09/05/2024 11:20:23 5.5 4.0-5.6 (% ) Final The use of HbA1c to monitor glycemic status is based on normal hemoglobin and HbA composition. This test should not be used in patients with abnormal hemoglobin that affects the half life of the red blood cell or the in vivo glycation rates. Glucose, estimated average 09/05/2024 11:20:23 111 <126 (mg/dL) Final Performing Location [facility] [address] [facility] [address]
--- OUTSIDE RECORDS SUMMARY | 2024-09-12 07:32 | External Medical Summary | Summary of Care ---
Author Name Unknown Organization [facility] Address [address] [facility] [place] [address] Phone [phone] Care Team Providers Care Core Cleaner Name Role Phone Em Fleming MD Primary Care Provider [phone] Reason for Visit * Reason Comments Outpatient Testing Encounter Details Date Type Department Care Team (Late st Contact Info) Description 09/05/2024 11:20 AM EST Laboratory [facility] [place] [place] [address] [place] [address] [place], Lab Scenery [address] [place] [address] Hyperlipidemia with target LDL less than 100; Encounter for long-term (current) use of medications; Acquired hypothyroidism Allergies Active Allergy Reactions Criticality Noted Date [...] as of this encounter (statuses as of 09/05/2024) Medications Polyethyl Glyc-Propyl Glyc PF 0.4-0.3 % [...] OFF FOR 12 HOURS. 30 Patch 3 12/02/19 24 Active Additional Information Patient taking differently: apply 1 patch TO THE AFFECTED AREA NEEDED. LEAVE ON FOR 12 HOURS AND THEN OFF FOR 12 HOURS., Reported on 09/01/2024 Synthroid 75 MCG Oral Tablet Take 1 Tablet by mouth daily first thing in the morning. 04/05/20 24 Active B-12 100 MCG Oral Tablet Take 1,000 mcg by mouth in the morning. 2 GUMMIES. Active ProAir HFA 108 (90 Base) MCG/ACT Inhalation Aerosol SolutionIndication s:Cough USE 2 INHALATIONS EVERY 4 HOURS NEEDED FOR COUGH, SHORTNESS OF BREATH OR WHEEZING 51 g 1 05/25/20 24 Active Bromfenac Sodium 0.07 % Ophthalmic Solution INSTILL 1 DROP IN EACH EYE EVERY DAY 06/20/20 24 Active Vitamin D3 50 MCG (2000 UT) Oral Tablet Chewable Take by mouth. Active Zepbound 2.5 MG/0.5ML Subcutaneous Solution Auto-injector ([employer]irzepatide-Weigh t Management)Indicat ions:Class 1 obesity due to excess calories with body mass index (BMI) of 30.0 to 30.9 in adult, unspecified whether serious comorbidity present Inject 2.5 mg under the skin once a week. 6 mL 1 07/21/20 24 Active DULoxetine HCl 30 MG Oral Capsule Delayed Release Particles (Cymbalta) Take by mouth. Acti ve Hydrocortisone 5 MG Oral Tablet (Cortef)Indication s:Secondary adrenal insufficiency (HCC) Take 1.5 Tablets by mouth in the morning. 09/01/19 25 Active Pregabalin 50 MG Oral Capsule (Lyrica)Indication s:Degeneration of intervertebral disc of lumbar region with discogenic back pain and lower extremity pain Take 1 Capsule by mouth at bedtime. In 1 week increase to twice a day 60 Capsule 2 09/04/19 25 Active documented as of this encounter (statuses as of 09/05/2024) Active Problems Problem Noted Date Diagnosed Date [...] as of this encounter (statuses as of 09/05/2024) Resolved Problems Problem Noted Date Diagnosed Date Resolved Date Side effect of medication 05/29/2023 BMI 31.0-31.9,adult 12/03/2017 04/13/20 19 Mild persistent [...] as of this encounter (statuses as of 09/05/2024) Immunizations Name Administration Dates Next Due COVID-19 mRNA, LNP-s, No Pre serve, 2-Dose Series (Pfizer) 11/27/2020,10/29/2020 Pneumococcal Conjugate Vacci ne, 20-valent ([id number]) 03/12/2022 Pneumococcal Polysaccharide PPV23 (Pneumovax) 12/03/2017 Seasonal [...] 9:50 AM EDT Sexual Orientation Straight 12/19/2018 9 :50 AM EDT 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 Not on file Not on fi le Not on file Not on file Not on file Not on file documented as of this encounter Plan of Treatment Upcoming Encounters Date Type Department Care Team (Late st Contact Info) Description 10/25/2024 11:20 AM EST Nutrition Services Nutrition & Weight Management, [facility] [address] [place] [address] Nae Carrillo RDN [address] [place] [address] 12/01/2024 9:40 AM EDT Office Visit General Internal Medicine [facility] [place] [address] [place] [address] Em Fleming MD [address] [place] [address] 12/26/2024 9:40 AM EDT Office Visit General Internal Medicine [facility] [place] [address] [place] [address] Em Fleming MD [address] [place] [address] 01/15/2025 12:50 PM EDT Office Visit Dermatology [facility] [address] [place] [address] Edilma Maier PA-C [address] [place] [address] 03/30/2025 9:15 AM EDT Office Visit Dermatology [facility] [place] [address] [place] [address] Salvatore Preciado MD 200 [place] [address] Pending Results Name Type Priority Associated Diagnoses Date /Time COMPREHENSIVE METABOLIC PANEL Lab Routine Hyperlipidemia with target LDL less than 100 09/05/2024 11:20 AM EST LIPID PANEL WITH DIRECT LDL IF TG IS HIGH Lab Routine Hyperlipidemia with target LDL less than 100 09/05/2024 11:20 AM EST HEMOGLOBIN A1C Lab Routine Encounter for long-term (current) use of medications 09/05/2024 11:20 AM EST TSH Lab Routine Acquired hypothyroidism 09/05/2024 11:20 AM EST Scheduled Procedures Name Priority Associated Diagnoses Date/Ti [...] as of this encounter Visit Diagnoses Diagnosis Hyperlipidemia with target LDL less than 100 Other and unspecified hyperlipidemia Encounter for long-term (current) use of medications Encounter for long-term (current) use of other medications Acquired hypothyroidism Unspecified hypothyroidism documented in this encounter Additional Health Concerns Infection Onset Date Last Indicated Resolved Time Parainfluenza Virus 09/01/2024 09/01/2024 documented as of this encounter Care Teams Core Cleaner Relationship Specialty Start Date End Date Em Fleming MD 200 [place] [address] PCP - General Internal Medicine 02/19/12 documented as of this encounter
--- OUTSIDE RECORDS SUMMARY | 2024-09-12 07:32 | External Medical Summary | Summary of Care ---
Author Name Unknown Organization [facility] Address [address] [facility] [place] [address] Phone [phone] Care Team Providers Care Insurance Application Investigator Name Role Phone Em Cartre MD Primary Care Provider [phone] Reason for Visit * Reason Comments Follow Up Patient here for juan r loss and to discuss cream for dark spots. She had been sick recently, loss of balance, had thyroid med dose changed. Encounter Details Date Type Department Care Team (Late st Contact Info) Description 08/15/2024 3:15 PM EST Office Visit Dermatology Narcisa [facility] [place] [address] [place] [address] Salvatore Preciado MD [address] [facility] [place] [address] Female pattern alopecia*; Actinic keratosis Allergies Active Allergy Reactions Criticality Noted Date [...] as of this encounter (statuses as of 08/17/2024) Medications Polyethyl Glyc-Propyl Glyc PF 0.4-0.3 % [...] DAY 4 Active Vitamin D3 50 MCG (1999 [place]) Oral Tablet Chewable Take by mouth. Activ e Zepbound 2.5 MG/0.5ML Subcutaneous Solution Auto-injector ([place] ght Management)Indic ations:Class 1 obesity due to excess calories with body mass index (BMI) of 30.0 to 30.9 in adult, unspecified whether serious comorbidity present Inject 2.5 mg under the skin once a week. 6 mL 1 4 Active DULoxetine HCl 30 MG Oral Capsule Delayed Release Particles (Cymbalta) Take by mouth. Acti ve documented as of this encounter (statuses as of 08/17/2024) Active Problems Problem Noted Date Diagnosed Date [...] as of this encounter (statuses as of 08/17/2024) Resolved Problems Problem Noted Date Diagnosed Date [...] as of this encounter (statuses as of 08/17/2024) Immunizations Name Administration Dates Next Due COVID-19 mRNA, LNP-s, No Pre serve, 2-Dose Series (Pfizer) 11/27/2020,10/29/2020 Pneumococcal Conjugate Vacci ne, 20-valent ([id number]) 03/12/2022 Pneumococcal Polysaccharide PPV23 (Pneumovax) 12/03/2017 Seasonal [...] No 05/29/2023 Does the household have a [facility] source of income? 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 SUBJECTIVE: Chief Complaint: Chief Complaint Patient presents with Follow Up Patient here for hair loss and to discuss cream for dark spots. She had been sick recently, loss ofbalance, had thyroid med dose changed. HPI: Payton Lai is a 68 year old female seen for hair loss. Has previously seen Elahm Desir Mariola Daniels for this. From chart review, was seen many years ago by Dr. Gamboa in [place] as well at which time she had a biopsy c/w androgenetic alopecia Would also like to discuss dark spots on face Most recent loss started about 1 year ago. Concerned it may have been related to thyroid. Saw an lumber tailer through [facility]. Told she had primary adrenal insufficiency. Now on oral hydrocortisone for this. This whole time was having hair loss. Did have biopsy in 2007 c/w androgenetic alopecia Older Notes Back to Top Notes recorded by Lynn Gamboa MD. on 06/28/2008 at 12:51 PM Patient aware of biopsy , will request labs from [facility] as she said she had TSH and Ferritin there. ------ Notes recorded by Lynn Gamboa MD. on 06/26/2008 at 12:51 PM Skin and subcutaneous tissue, scalp, punch biopsy: Nonscarring alopecia with some follicular miniaturization, androgenetic alopecia with a small focus of perifollicular fibrosis and inflammation around a portion of the infundibulum of one follicle. (See comment) Comment: In summary, the findings are considered compatible with androgenetic alopecia. Denies significant family history of hair thinning Dad had mild thinning Mom had mild thinning but only later in life. Tried rogaine. Didn't seem to help. Can't wear wig. Wind will blow it off. Can't wear it on a speedboat Has had some weight changes as well REVIEW OF SYSTEMS: CONSTITUTIONAL: negative SKIN: No new or changing moles or rashes other than those noted in HPI HEME/LYMPH: No new or enlarging lumps or bumps OBJECTIVE: GEN: Tearful but alert, appears oriented, pleasant, and cooperative SKIN: Problem focused exam reveals: Diffusely thin hair, most pronounced over central part and crown Negative hair pull test No erythema or scale Nasal bridge - dry gritty erythematous papule ASSESSMENT/PLAN: Androgenetic alopecia .- 40 min conversation with patient regarding nature of condition and expected course, treatment options - recommend she continue f/u with her lumber tailer - Recommend that the patient consider a trial of at least 6 months of minoxidil 5% topical solution/foam. We discussed that they may initially notice hair loss with initiation of this medication. We also recommended that they taper the medication if they choose to discontinue it. - due to history of adrenal insufficiency, she is not a good candidate for spironolactone - discussed oral minoxidil, recommend against due to risk for SE -We recommended dietary supplementation with Biotin and Vitamin D -Well balanced diet, 60-80 mg protein Actinic keratosis -The diagnosis and malignant potential of the lesion was explained. Treatment options were reviewedincluding cryotherapy, topical medications, and observation. All questions were addressed. Procedure - Cryotherapy (Premalignant Destruction) -The patient would like to proceed with cryosurgery;Cryosurgery explained to the patient, consent obtained, patient, site and procedure verified, and then cryotherapy was performed with Liquid Nitrogen via cryo spray unit to 1 lesions. Location noted in physical exam. Post op course explained. -Discussed that if any of these lesions fail to completely resolve after treatment patient should call me for re-evaluation Salvatore Preciado MD REF: SELF [address] ADDRESS AVAILABLE [facility]: [place] [address] [phone] documented in this encounter Nursing Notes * Deneen Madrid LPN - 08/15/2024 3:09 PM EST Chief Complaint Patient presents with Follow Up Patient here for hair loss and to discuss cream for dark spots. She had been sick recently, loss ofbalance, had thyroid med dose changed. documented in this encounter Plan of Treatment Upcoming Encounters Date Type Department Care Team (Late st Contact Info) Description 10/25/2024 11:20 AM EST Nutrition Services Nutrition & Weight Management, [facility] [address] [place] [address] Nae Carrillo RDN [address] [place] [address] 12/26/2024 9:40 AM EDT Office Visit General Internal Medicine [facility] [address] [facility] [place] [address] Em Carter MD 200 [facility] [place] [address] 01/15/2025 12:50 PM EDT Office Visit Dermatology [facility], [place] [address] [place] [address] Edilma Maier PA-C [address] [place] [address] 03/30/2025 9:15 AM EDT Office Visit Dermatology [facility] [address] [facility] [place] [address] Salvatore Preciado MD 200 [facility] [place] [address] Scheduled Procedures Name Priority Associated Diagnoses Date/Ti [...] as of this encounter Visit Diagnoses Diagnosis Female pattern alopecia- Primary Alopecia, unspecified Actinic keratosis documented in this encounter Care Teams Insurance Application Investigator Relationship Specialty Start Date End Date Em Carter MD 200 [facility] [place], [place] [address] PCP - General Internal Medicine 02/19/12 documented as of this encounter
--- OUTSIDE RECORDS SUMMARY | 2024-09-12 07:32 | External Medical Summary | Summary of Care ---
Author Name Unknown Organization [facility] Address [address] [facility] [address] Phone [phone] Care Team Providers Care Funeral Home General Manager Name Role Phone Em Fleming MD Primary Care Provider [phone] Encounter Details Date Type Department Care Team (Late st Contact Info) Description 08/07/2024 Result Scan Unspecified Department <No scans attached> Allergies Active Allergy Reactions Criticality Noted Date [...] as of this encounter (statuses as of 08/16/2024) Medications Polyethyl Glyc-Propyl Glyc PF 0.4-0.3 % [...] e Zepbound 2.5 MG/0.5ML Subcutaneous Solution Auto-injector (Tirzepatide-[place] ght Management)Indic ations:Class 1 obesity due to excess calories with body mass index (BMI) of 30.0 to 30.9 in adult, unspecified whether serious comorbidity present Inject 2.5 mg under the skin once a week. 6 mL 1 4 Active documented as of this encounter (statuses as of 08/16/2024) Active Problems Problem Noted Date Diagnosed Date [...] as of this encounter (statuses as of 08/16/2024) Resolved Problems Problem Noted Date Diagnosed Date [...] as of this encounter (statuses as of 08/16/2024) Immunizations Name Administration Dates Next Due COVID-19 mRNA, LNP-s, No Pre serve, 2-Dose Series (Pfizer) 11/27/2020,10/29/2020 Pneumococcal Conjugate Vacci ne, 20-valent ([id number]) 03/12/2022 Pneumococcal Polysaccharide PPV23 (Pneumovax) 12/03/2017 Seasonal [...] 18 years and over) Not on file 09/30/202 3 Are you (or your family) beatrice eless [...] 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 [address] [facility] [place] [address] Nae Carrillo RDN 132 [facility] [place] [address] 12/26/2024 9:40 AM EDT Office Visit General Internal Medicine Narcisa Mitchell [place] [address] [place] [address] Em Fleming MD [address] [place] [address] 01/15/2025 12:50 PM EDT Office Visit Dermatology [facility] [place] [address] [facility] [place] [address] Edilma Maier PA-C [address] [facility] [place] [address] 03/30/2025 9:15 AM EDT Office Visit Dermatology Narcisa Mitchell [place] 200 [facility] [place] [address] Salvatore Preciado MD 200 [facility] [place] [address] Scheduled Procedures Name Priority Associated Diagnoses Date/Ti [...] Procedure Name Priority Date/Time Associated Diagnosis Comments RADIOLOGY SCANNED RESULT 08/07/2024 documented in this encounter Results * RADIOLOGY SCANNED RESULT (08/07/2024) 08/07/2024 us No Physician Data Unknown DIAGNOSTIC RADIOLOGY S ERVICES Final Result documented in this encounter Care Teams Funeral Home General Manager Relationship Specialty Start Date End Date Em Fleming MD [address] [place] [address] PCP - General Internal Medicine 02/19/12 documented as of this encounter
--- OUTSIDE RECORDS SUMMARY | 2024-09-12 07:32 | External Medical Summary ---
Author Name Unknown Address Unknown Organization K01:LABORATORY [address] [facility] [address] Laboratory Report Ordering Provider Test Date Status EMMA ROWAN 09/01/2024 10:56:14 Final Observation Date Value Abnormality Reference (Units) Status Streptococcus pyogenes DNA [Presence] in Throat by CHELE with probe detection 09/01/2024 10:56:14 Negative. No Group A Streptococcus detected by PCR (amplified probe). Negative Final This test was developed and its performance characteristics determined by [employer] [facility]. It has not been cleared or approved by the FDA. The laboratory is regulated under CLIA as qualified to perform high- complexity testing. This test is used for clinical purposes. It should not be regarded as investigational or for research. Performing Location LABORATORY [address] [facility] [address]
--- OUTSIDE RECORDS SUMMARY | 2024-09-12 07:32 | External Medical Summary ---
Author Name Unknown Address Unknown Organization K09:[facility] [address] [place] [address] Laboratory Report Ordering Provider Test Date Status EMMA ROWAN 09/05/2024 11:20:23 Final Observation Date Value Abnormality Reference (Units ) Status BUN 09/05/2024 11:20:23 17 6-20 (mg/dL) Final Creatinine 09/05/2024 11:20:23 0.9 0.5-1.0 (mg/dL) Final Glomerular filtration rate/1.73 sq M.predicted [Volume Rate/Area] in Serum, Plasma or Blood by Creatinine-based formula (CKD-EPI) 09/05/2024 11:20:23 69 >=60 (mL/min) Final eGFR is calculated based on the CKD-EPI 2020 equation. Sodium 09/05/2024 11:20:23 144 135-146 (m mol/L) Final Potassium 09/05/2024 11:20:23 4.1 3.5-5.1 (m mol/L) Final Cl 09/05/2024 11:20:23 102 98-107 (mm ol/L) Final CO2 09/05/2024 11:20:23 31 22-32 (mmo l/L) Final Anion gap 09/05/2024 11:20:23 11 7-15 (mmol /L) Final Glucose 09/05/2024 11:20:23 80 70-120 (mg /dL) Final Albumin 09/05/2024 11:20:23 4.3 3.8-5.0 (g /dL) Final AST (Aspartate aminotransferase) 09/05/2024 11:20:23 19 10-35 (U/L) Final Alk Phos 09/05/2024 11:20:23 88 35-130 (U/ L) Final Bilirubin, Total 09/05/2024 11:20:23 0.2 <=1 .2 (mg/dL) Final Calcium 09/05/2024 11:20:23 9.7 8.4-10.2 ( mg/dL) Final Protein 09/05/2024 11:20:23 6.7 6.0-8.3 (g /dL) Final ALT (Alanine aminotransferase) 09/05/2024 11:20:23 13 10-35 (U/L) Final Performing Location LABORATORY [facility] [facility] [address] [place] [address]
--- OUTSIDE RECORDS SUMMARY | 2024-09-12 07:32 | External Medical Summary ---
Author Name Unknown Address Unknown Organization K01:LABORATORY [facility] - [address] [place] [address] Laboratory Report Ordering Provider Test Date Status EMMA ROWAN 09/05/2024 11:20:23 Final Observation Date Value Abnormality Reference (Units ) Status TSH 09/05/2024 11:20:23 10.80 Above high normal 0. 27-4.20 (uIU/mL) Final Performing Location LABORATORY C - [address] [place] [address]
--- OUTSIDE RECORDS SUMMARY | 2024-09-12 07:32 | External Medical Summary ---
Author Name Unknown Address Unknown Organization K01:[facility] [place] [address] [facility] [place] [address] Laboratory Report Ordering Provider Test Date Status EMMA ROWAN 09/01/2024 10:56:35 Final Observation Date Value Abnormality Reference (Units ) Status Adenovirus DNA [Presence] in Nasopharynx by CHELE with non-probe detection 09/01/2024 10:56:35 Negative Negative Final Human coronavirus 229E RNA [Presence] in Nasopharynx by CHELE with non-probe detection 09/01/2024 10:56:35 Negative Negative Final Human coronavirus HKU1 RNA [Presence] in Nasopharynx by CHELE with non-probe detection 09/01/2024 10:56:35 Negative Negative Final Human coronavirus NL63 RNA [Presence] in Nasopharynx by CHELE with non-probe detection 09/01/2024 10:56:35 Negative Negative Final Human coronavirus OC43 RNA [Presence] in Nasopharynx by CHELE with non-probe detection 09/01/2024 10:56:35 Negative Negative Final SARS-CoV-2 (COVID-19) RNA [Presence] in Nasopharynx by CHELE with non-probe detection 09/01/2024 10:56:35 Negative Negative Final Human metapneumovirus RNA [Presence] in Nasopharynx by CHELE with non-probe detection 09/01/2024 10:56:35 Negative Negative Final Rhinovirus+Enterovirus RNA [Presence] in Nasopharynx by CHELE with non-probe detection 09/01/2024 10:56:35 Negative Negative Final Influenza virus A RNA [Presence] in Nasopharynx by CHELE with non-probe detection 09/01/2024 10:56:35 Negative Negative Final Influenza virus B RNA [Presence] in Nasopharynx by CHELE with non-probe detection 09/01/2024 10:56:35 Negative Negative Final Parainfluenza virus 1 RNA [Presence] in Nasopharynx by CHELE with non-probe detection 09/01/2024 10:56:35 Negative Negative Final Parainfluenza virus 2 RNA [Presence] in Nasopharynx by CHELE with non-probe detection 09/01/2024 10:56:35 Positive Abnormal Negative Final Parainfluenza virus 2 detect ed by PCR (amplified probe). Parainfluenza virus 3 RNA [P resence] in Nasopharynx by CHELE with non-probe detection 09/01/2024 10:56:35 Negative Negative Final Parainfluenza virus 4 RNA [P resence] in Nasopharynx by CHELE with non-probe detection 09/01/2024 10:56:35 Negative Negative Final Respiratory syncytial virus RNA [Presence] in Nasopharynx by CHELE with non-probe detection 09/01/2024 10:56:35 Negative Negative F inal Bordetella pertussis.pertuss is toxin promoter region [Presence] in Nasopharynx by CHELE with non-probe detection 09/01/2024 10:56:35 Negative Negative Final Chlamydophila pneumoniae DNA [Presence] in Nasopharynx by CHELE with non-probe detection 09/01/2024 10:56:35 Negative Negative Final Mycoplasma pneumoniae DNA [P resence] in Nasopharynx by CHELE with non-probe detection 09/01/2024 10:56:35 Negative Negative Final Bordetella parapertussis IS1 001 DNA [Presence] in Nasopharynx by CHELE with non-probe detection 09/01/2024 10:56:35 Negative Negative F inal The primers that detect Rhin ovirus may cross react with some Enterorviruses. The validation of bronchial specimens, tracheal aspirates, and throats for this assay was developed and performance characteristics determined by [employer]. The validation of alternate specimen types has not been cleared or approved by the U.S. Food and Drug Administration (FDA). It has been determined that such clearance or approval is not necessary. Performing Location LABORATORY [place] [address] [address] [facility] [place] [facility] [address]
--- OUTSIDE RECORDS SUMMARY | 2024-09-12 07:32 | External Medical Summary | Summary of Care ---
Author Name Unknown Organization [facility] Address [address] [facility] [place] [address] Phone [phone] Care Team Providers Care Fermenting Cellars Receiver Name Role Phone Em Fleming MD Primary Care Provider [phone] Reason for Visit * Reason Comments Follow Up Knee Pain L knee Encounter Details Date Type Department Care Team (Latest Contact Info) Description 08/08/2024 2:30 PM EST Office Visit Orthopaedics [facility] [address] [place] [address] Fahad Hayes MD 132 [facility] [place] [address] Primary osteoarthritis of left knee* Allergies Active [...] Tablet before bedtime. 1/2 tablet in morning. 05/23/20 24 Active ProAir HFA 108 (90 Base) MCG/ACT [...] once a week. 6 mL 1 07/21/20 Active Methocarbamol 500 MG Oral Tablet (Robamol) 1 Tablet. 06/24/20 Discontin ued(Medic ation List Clean Up) traMADol HCl 50 MG Oral Tablet (Ultram)Indicati ons:Spinal stenosis of lumbar region with neurogenic claudication Take 1 Tablet by mouth every 8 hours as needed for Pain, Severe (back pain). 60 Tablet 07/05/20 Discontin ued(Medic ation List Clean Up) Cyclobenzaprine HCl 10 MG Oral Tablet (Flexeril) TAKE 1 TABLET BY MOUTH TWO TIMES DAILY NEEDED FOR MUSCLE SPASMS 07/25/20 Discontin ued(Medic ation List Clean Up) Ketorolac Tromethamine 10 MG Oral Tablet (Toradol) TAKE 1 TABLET BY MOUTH EVERY 8 HOURS FOR 5 DAYS 07/25/20 Discontin ued(Medic ation List Clean Up) oxyCODONE HCl 5 MG Oral Tablet (Oxy IR) Take 1 Tablet by mouth every 8 hours as needed. For pain. 07/25/20 Discontin ued(Medic ation List Clean Up) Hospital, Clinic, or Other Facility Administered Medication Ordered Dose Route Frequency Start Date End Date Status sodium hyaluronate (Gelsyn-3) 16.8 MG/2ML inj 16.8 mgIndications:Primary osteoarthritis of left knee 16.8 mg IX ONCE 08/08/2024 08/08/20 Ended documented as of this encounter (statuses [...] Date Resolved Date BMI 31.0-31.9,adult 12/03/2017 04/13/20 Mild persistent asthma [...] (Pfizer) 11/27/2020,10/29/2020 Pneumococcal Conjugate Vacci ne, 20-valent ([id number]) 03/12/2022 Pneumococcal Polysaccharide PPV23 (Pneumovax) 12/03/2017 Seasonal [...] 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 The patient is here for the SECOND of a series of Gelsyn injections. There [...] Note: This also occurred after her 1st injection. The increase in pain lasted about 30 minutes and then decreased. Pain is improved from prior to when we started the injections. Assessment: OA Left knee. Plan: The patient will follow up in 1 Week for reinjection. Fahad Hayes MD Primary Care Sports Medicine Orthopaedics [address] [address] documented in this encounter Nursing Notes * Enedelia Walker LPN - 08/08/2024 1:51 PM EST -f/u -L knee -SECOND of a series Gelsyn injections -Pt c/o 11/06 pain today -Pt is unaccompanied Beata Ramires LPN documented in this encounter Plan of Treatment Upcoming Encounters Date Type Department Care Team (Late st Contact Info) Description 08/15/2024 3:30 PM EST Office Visit Dermatology Narcisa Mitchell [place] [address] [place] [address] Salvatore Preciado MD [address] [place] [address] 08/15/2024 3:30 PM EST Office Visit [facility]opaedics [facility] [place] [address] Fahad Hayes MD [address] [facility] [place] [address] Diagnosis: OA Left knee. 10/25/2024 11:20 AM EST Nutrition Services Nutrition & Weight Management, [facility] 132 [facility] [place] [address] Nae Carrillo RDN [facility] [place] [address] 12/26/2024 9:40 AM EDT Office Visit General Internal Medicine [facility] [address] [place] [address] Em Fleming MD [address] [facility] [place] [address] 01/15/2025 12:50 PM EDT Office Visit Dermatology [facility] [place] [address] [facility] [place] [address] Edilma Maier PA-C [address] [facility] [place] [address] Scheduled Procedures Name Priority Associated Diagnoses Date/Ti [...] 16.8 mg 16.8 mg, Intra-Articular, ONCE, On Tu08/08/24 at 1430, For 1 doseIndications:Primary osteoarthritis of left knee Given 08/08/2024 2:54 PM EST 16.8 mg Knee Left documented in this encounter Care Teams Fermenting Cellars Receiver Relationship Specialty Start Date End Date Em Fleming MD 200 [facility], [place] [id number] PCP - General Internal Medicine 02/19/12 documented as of this encounter
[2024-09-12] MEDS: KETOROLAC TROMETHAMINE 15 MG/ML VIAL IV STA (08:14)
[2024-09-12] MEDS: diazePAM 5 MG/ML 10ML VIAL IV STA (08:14)
[2024-09-12] MEDS: HYDROmorphone INJ 0.5 MG/0.5 ML SYR IV STA (08:14)
[2024-09-12] MEDS: ONDANSETRON INJ 2 MG/ML 2 ML VIAL IV STA ×2 (08:14→12:29)
[2024-09-12] MEDS: ACETAMINOPHEN 1,000 MG/100 ML VIAL IV STA (08:14)
--- NOTE | 2024-09-12 08:24 | Emergency Department Note ---
Impression & Plan Lower back pain, Hypotension, Acute UTI, Adrenal insufficiency, Leukocytosis ED Provider Note NAME: MEI GOULD AGE: 68 SEX: F : 1955 ARRIVES VIA: Walk-In INFORMANT: [Patient] ED PROVIDER(S): [Gilberto Knutson MD] CHIEF COMPLAINT: Back pain HISTORY OF PRESENT ILLNESS: The patient is a 68-year-old female with chronic back issues. She has seen spinal surgery and the surgery was not thought a great option. She was told to do physical therapy and to seek pain management. The patient states that recently, her back pain has worsened. She did see her doctor's office, her physician prescribed Lyrica. This has not helped. In the last 2 days, the pain has become quite severe, she tried some leftover tramadol which also has not helped. The patient does have a history of urinary incontinence, she states that the incontinence issue seems a bit worse since her back pain has worsened. No fever or chills, no cough or cold. No fall or trauma. The patient has had imaging of her back. She had an MRI performed on 03/05/2024, results as follows: Impression: Multilevel multifactorial degenerative changes in the lumbar spine, which further progressed since 2021, most prominent at L4-5 level, there is moderate to severe spinal canal stenosis, narrowing of the lateral recesses, mild to moderate right and mild left neural foraminal narrowing. Moderate right and mild to moderate left L5-S1 foraminal stenosis. PMHx/PSHx/Social Hx: See Below PHYSICAL EXAM: GENERAL: Patient is in moderate distress from pain. HEENT: No acute trauma, normocephalic atraumatic, mucous membranes moist, no nasal congestion. NECK: No stridor, no adenopathy, no meningismus, trachea is midline. LUNGS: Clear to auscultation bilaterally, no wheeze, no rhonchi, breath sounds equal. HEART: Without murmurs gallops or rubs, regular rate and rhythm. ABDOMEN: Soft, nontender, no peritonitis. EXTREMITIES: No cyanosis, full range of motion of all the joints without pain or difficulty. NEUROLOGIC: Oriented x 3, no acute motor or sensory deficits, no focal weakness. 2/4 patellar reflexes and 1/4 Achilles reflexes bilaterally. SKIN: No jaundice, no diaphoresis. Back: Severe lower back pain with any movement, even movement of her legs causes increased back pain. DIFFERENTIAL DIAGNOSIS: Lumbar spasm, spinal stenosis, fracture, UTI, urinary retention, disc herniation, among others. EMERGENCY DEPARTMENT PROCEDURES: Postvoid bladder scan showed 0 cc, no retention. MEDICAL DECISION MAKING: There is a mild leukocytosis, this would be consistent with infection. There was a normal hemoglobin and platelet count. No renal failure or significant electrolyte abnormality. No concerning liver enzyme elevation. Urinalysis showed some dehydration and potential infection. On exam, the patient had good reflexes in both lower extremities. By nurse testing, she was not retaining urine postvoid. She was not febrile or toxic. She was noted to be somewhat hypotensive here in the ED. The patient received IV saline, IV ceftriaxone. She was given IV Dilaudid, IV Valium, IV Zofran, Toradol, IV Tylenol. She eventually received a second dose of IV Zofran. She was given a dose of IV hydrocortisone. The patient was here for several hours. She became a bit hypoxic requiring O2 supplementation, I suspect the drop in the oxygen level was secondary to the multiple meds required for pain control. The patient has been persistently hypotensive here in the ED. The hypotension is likely multifactorial. The patient is somewhat dehydrated. She has a UTI, she is on some new meds which may be contributing. She has a history of adrenal insufficiency. Given the circumstances, given her findings, given her lack of improvement while here in the ED, she will be hospitalized for further care and management. I spoke with the patient and case management. The on-call hospitalist was consulted. Prior/Outside records/notes reviewed: Previous MRI results noted above. Imaging/x-ray results per my interpretation: Chronic Medical/Social conditions affecting care: Chronic back pain, history of adrenal insufficiency Care/Management discussed with: Case management, the on-call hospitalist. Level of care consideration(s): After review of the information above and other included data: --I believe the patient requires escalation of care to admission DISPOSITION: Admission Past Med/Surg History Problem List Leukocytosis (Acute) Adrenal insufficiency (Acute) Acute UTI (Acute) Hypotension (Acute) Lower back pain (Acute) Overweight (BMI 25.0-29.9) Spinal stenosis intermediate current use of systemic steroids Secondary adrenal insufficiency Wesley's thyroiditis Chest pain (Acute) No significant past surgical history Hypothyroid (Chronic) Medical History Depression Asthma Surgical History (Updated 12/30/23 @ 07:34 by Mandi Cardozo RN) History of tonsillectomy History of adenoidectomy History of hysterectomy Social History Smoking Status: Never smoker Preferred Language: Danish marital status: Current Living Situation: Spouse current occupational status: employed Feels Safe at Home: Yes Allergies Allergies Allergy/AdvReac Type Severity Reaction Status Date / Time bee venom protein (honey bee) Allergy Severe EXTREME Verified 09/12/24 09:22 SWELLING AT SITES, EYES TURNED YELLOW dog dander Allergy Intermediate BLOW UP Verified 09/12/24 09:22 ALL OVER hydroxyzine Allergy Intermediate SWOLLEN Verified 09/12/24 09:22 HANDS AND FEET, NAUSEA Iodinated Contrast Media Allergy Intermediate IV SITE Verified 09/12/24 09:22 BUBBLED UP AND HIVES ALL OVER loratadine [From Claritin-D] Allergy Intermediate SWELLING Verified 09/12/24 09:22 AND RED RASH mold Allergy Intermediate BLOWS UP Verified 09/12/24 09:22 WITH SWELLING nickel Allergy Intermediate WELTS Verified 09/12/24 09:22 pseudoephedrine Allergy Intermediate SWELLING Verified 09/12/24 09:22 [From Claritin-D] AND RED RASH shellfish derived Allergy Intermediate DIZZINESS, Verified 09/12/24 09:22 N/V, LOBSTER--RASH, HIVES Sulfa (Sulfonamide Allergy Intermediate SWELLING, Verified 09/12/24 09:22 Antibiotics) RASH bupropion [From Contrave] Allergy Swelling Verified 09/12/24 09:22 of Lip/Tongue/Throat chromium Allergy Unknown Verified 09/12/24 09:22 duloxetine Allergy Unknown Verified 09/12/24 09:22 naltrexone [From Contrave] Allergy Swelling Verified 09/12/24 09:22 of Lip/Tongue/Throat spider venom Allergy Unknown Verified 09/12/24 09:22 gabapentin AdvReac Intermediate BLURRING Verified 09/12/24 09:22 OF VISION nickel Allergy Unknown Uncoded 09/12/24 09:22 Home Meds Home Medications Medication Instructions Recorded Confirmed albuterol sulfate 90 mcg/actuation 2 puff inhalation Q4H PRN 10/01/20 09/12/24 aerosol inhaler Shortness Of Breath Or Wheezing olopatadine 0.1 % eye drops 1 drp ophthalmic (eye) BID 10/22/23 09/12/24 (Pataday Twice Daily Relief) tirzepatide (weight loss) 2.5 2.5 mg subcut WK 01/11/24 09/12/24 mg/0.5 mL subcutaneous pen injector (Zepbound) bromfenac 0.07 % eye drops 1 drp OPB DAILY 06/24/24 09/12/24 hydrocortisone 5 mg tablet 7.5 mg PO QAM 06/24/24 09/12/24 cholecalciferol (vitamin D3) 50 100 mcg PO DAILY 07/07/24 09/12/24 mcg (2,000 unit) capsule mecobalamin (vitamin B12) 1,000 2,000 mcg PO DAILY 07/07/24 09/12/24 mcg chewable tablet fluticasone propionate 110 2 puff inhalation BID 09/12/24 09/12/24 mcg/actuation HFA aerosol inhaler pregabalin 50 mg capsule 50 mg PO HS 09/12/24 09/12/24 Previous Rx's Medication Instructions Recorded Synthroid 88 mcg tablet 88 mcg PO DAILY #90 tabs 09/08/24 (levothyroxine) Results & Data (ED) Vital Signs Vital Signs - 24 hr 09/12/24 07:34 09/12/24 08:08 09/12/24 08:28 Temperature 36.6 C Temperature Source Oral Pulse Rate 89 86 Pulse Rate from SpO2 Sensor Respiratory Rate 20 Respiratory Effort / Characteristics Non-Labored Spontaneous Respiratory Depth Normal Blood Pressure 97/64 L Blood Pressure Mean 75 Pulse Oximetry 98 83 L Oxygen Delivery Method Room Air Room Air Oxygen Flow Rate Sepsis Recent Fever Within 48 Hours No Sepsis New/Unexplained Change in Mental Status N/A Sepsis Action Taken by Nursing No Action Required Oxygen Flow Rate - Titration 4 Pulse Oximetry Post Tiitration 99 09/12/24 08:38 09/12/24 09:00 09/12/24 10:11 Temperature Temperature Source Pulse Rate 68 Pulse Rate from SpO2 Sensor 69 Respiratory Rate 17 Respiratory Effort / Characteristics Respiratory Depth Blood Pressure 96/56 L 92/57 L Blood Pressure Mean 69 63 Pulse Oximetry 99 97 Oxygen Delivery Method Nasal Cannula Nasal Cannula Oxygen Flow Rate 4 2 Sepsis Recent Fever Within 48 Hours Sepsis New/Unexplained Change in Mental Status Sepsis Action Taken by Nursing Oxygen Flow Rate - Titration 2 Pulse Oximetry Post Tiitration 97 09/12/24 10:18 09/12/24 11:00 09/12/24 11:03 Temperature Temperature Source Pulse Rate 61 58 L Pulse Rate from SpO2 Sensor 61 59 L Respiratory Rate 19 12 Respiratory Effort / Characteristics Respiratory Depth Blood Pressure 99/56 L Blood Pressure Mean 67 Pulse Oximetry 96 97 Oxygen Delivery Method Nasal Cannula Nasal Cannula Oxygen Flow Rate 2 2 Sepsis Recent Fever Within 48 Hours Sepsis New/Unexplained Change in Mental Status Sepsis Action Taken by Nursing Oxygen Flow Rate - Titration Pulse Oximetry Post Tiitration 09/12/24 11:12 09/12/24 12:00 09/12/24 12:09 Temperature Temperature Source Pulse Rate 76 63 Pulse Rate from SpO2 Sensor 75 62 Respiratory Rate 17 16 Respiratory Effort / Characteristics Respiratory Depth Blood Pressure 98/64 L Blood Pressure Mean 76 Pulse Oximetry 98 99 Oxygen Delivery Method Nasal Cannula Nasal Cannula Oxygen Flow Rate 2 2 Sepsis Recent Fever Within 48 Hours Sepsis New/Unexplained Change in Mental Status Sepsis Action Taken by Nursing Oxygen Flow Rate - Titration Pulse Oximetry Post Tiitration 09/12/24 13:00 Temperature Temperature Source Pulse Rate 70 Pulse Rate from SpO2 Sensor Respiratory Rate 19 Respiratory Effort / Characteristics Respiratory Depth Blood Pressure 85/52 L Blood Pressure Mean 63 Pulse Oximetry 95 Oxygen Delivery Method Nasal Cannula Oxygen Flow Rate 2 Sepsis Recent Fever Within 48 Hours Sepsis New/Unexplained Change in Mental Status Sepsis Action Taken by Nursing Oxygen Flow Rate - Titration Pulse Oximetry Post Tiitration Home Medications Current Medication List: was personally reviewed by me Laboratory Data Attestation: I reviewed the patient's lab results. 09/12/24 08:00 09/12/24 08:00 Lab Results 09/12/24 09/12/24 Range/Units 08:00 10:05 WBC 12.79 H (4.8-10.8) K/ul RBC 4.35 (4.20-5.40) M/uL Hgb 13.2 (12.0-16.0) g/dl Hct 38.6 (37.0-47.0) % MCV 88.7 (80.0-100.0) fL MCH 30.3 (25.0-34.0) pg MCHC 34.2 (32.0-36.0) g/dL RDW Std Deviation 42.9 (36.4-46.3) fL RDW Coeff of Jd 13.1 (11.5-14.5) % Plt Count 277 (130-400) K/uL MPV 10.7 (9.4-12.4) fL Immature Gran % (Auto) 0.7 % Neut % (Auto) 83.7 % Lymph % (Auto) 9.2 % [place] % (Auto) 5.5 % Eos % (Auto) 0.4 % Baso % (Auto) 0.5 % Neut # (Auto) 10.70 H (1.40-6.50) K/uL Lymph # (Auto) 1.18 L (1.20-3.40) K/uL [place] # (Auto) 0.70 H (0.11-0.59) K/uL Eos # (Auto) 0.05 (0.00-0.50) K/uL Baso # (Auto) 0.07 (0.00-0.20) K/uL Immature Gran # (Auto) 0.09 (0.01-0.20) K/uL Sodium 135 L (136-145) mmol/L Potassium 3.7 (3.5-5.1) mmol/L Chloride 98 (98-107) mmol/L Carbon Dioxide 28 (21-32) mmol/L Anion Gap 9 (3-11) BUN 13 (6-23) mg/dl Creatinine 0.83 (0.6-1.2) mg/dl Est Cr Clr Drug Dosing 67.1 ml/min eGFR 76.74 BUN/Creatinine Ratio 15.7 (10-20) Glucose 145 H (70-99(Fasting)) mg/dl Calcium 9.5 (8.6-10.3) mg/dl Total Bilirubin 1.1 H (0.2-1.0) mg/dl AST 13 (13-39) U/L ALT 9 (7-52) U/L Alkaline Phosphatase 65 (34-104) U/L Total Protein 7.0 (6.0-8.3) gm/dl Albumin 4.1 (3.4-5.0) gm/dl Globulin 2.9 (2.5-4.0) gm/dl Albumin/Globulin Ratio 1.4 (0.9-2) Urine Color Dark Yellow Urine Appearance Clear (Clear) Urine pH 7.5 (4.5-7.5) Ur Specific [place] 1.034 H (1.000-1.030) Urine Protein 1+ H (Negative) Urine Glucose (UA) Negative (Negative) Urine Ketones Trace H (Negative) Urine Blood Negative (Negative) Urine Nitrite Negative (Negative) Urine Bilirubin Negative (Negative) Urine Urobilinogen Negative (Negative) Ur Leukocyte Esterase Negative (Negative) Urine WBC (Auto) 11-20 H (0-5) /hpf Urine RBC (Auto) 0-2 (0-2) /hpf U Hyaline Cast (Auto) 3-5 H (0-2) /lpf U Epithel Cells (Auto) 3-5 H (0-2) /hpf Urine Bacteria (Auto) None Seen (None Seen) Urine Mucus Present A (None Prsent) Administered Medications Hydromorphone HCl (Hydromorphone Inj 0.5 Mg/0.5 Ml Syr) 0.5 mg IV Q15M PRN PRN Reason: Pain Stop: 09/26/24 08:01 Last Admin: 09/12/24 12:29 Dose: 0.5 mg Documented By: Admin: 09/12/24 10:12 Dose: 0.5 mg Documented By: Admin: 09/12/24 08:50 Dose: 0.5 mg Documented By: JOSE Discontinued Medications Diazepam (Diazepam 5 Mg/Ml 10ml Vial) 2.5 mg IV NOW STA Stop: 09/12/24 08:03 Last Admin: 09/12/24 08:14 Dose: 2.5 mg Documented By: JOSE Hydrocortisone Sodium Succinate (Hydrocortisone Sod Succinate 100 Mg/2 Ml Vial) 100 mg IV NOW STA Stop: 09/12/24 13:20 Last Admin: 09/12/24 13:24 Dose: 100 mg Documented By: JOSE Hydromorphone HCl (Hydromorphone Inj 0.5 Mg/0.5 Ml Syr) 0.5 mg IV NOW STA Stop: 09/12/24 08:03 Last Admin: 09/12/24 08:14 Dose: 0.5 mg Documented By: JOSE Acetaminophen (Ofirmev) 1,000 mg in 100 mls @ 400 mls/hr IV NOW STA Stop: 09/12/24 08:16 Last Infusion: 09/12/24 08:37 Dose: Infused Documented By: Admin: 09/12/24 08:14 Dose: 400 mls/hr Documented By: JOSE Sodium Chloride (Nss) 1,000 mls @ 999 mls/hr IV .Q1H1M ONE Stop: 09/12/24 12:01 Last Infusion: 09/12/24 12:13 Dose: Infused Documented By: Admin: 09/12/24 11:09 Dose: 999 mls/hr Documented By: JOSE Ceftriaxone Sodium (Rocephin) 2,000 mg in 50 mls @ 100 mls/hr IV NOW STA Stop: 09/12/24 11:30 Last Infusion: 09/12/24 12:13 Dose: Infused Documented By: Admin: 09/12/24 11:09 Dose: 100 mls/hr Documented By: JOSE Ketorolac Tromethamine (Ketorolac Tromethamine 15 Mg/Ml Vial) 15 mg IV NOW STA Stop: 09/12/24 08:03 Last Admin: 09/12/24 08:14 Dose: 15 mg Documented By: JOSE Ondansetron HCl (Ondansetron Inj 2 Mg/Ml 2 Ml Vial) 4 mg IV NOW STA Stop: 09/12/24 08:03 Last Admin: 09/12/24 08:14 Dose: 4 mg Documented By: JOSE Ondansetron HCl (Ondansetron Inj 2 Mg/Ml 2 Ml Vial) 4 mg IV NOW STA Stop: 09/12/24 12:23 Last Admin: 09/12/24 12:29 Dose: 4 mg Documented By: JOSE Discharge Plan Visit Data Chief Complaint: Back Injury/Pain Stated Complaint: SEVERE BACK PAIN ED Provider: Gilberto Knutson Discharge Problem: Lower back pain, Hypotension, Acute UTI, Adrenal insufficiency, Leukocytosis Patient Disposition: Admitted As Inpatient Condition: Fair Forms Stand Alone Forms: [facility] Prescriptions Prescriptions: No Action levothyroxine [Synthroid] 88 mcg tablet 88 mcg PO DAILY Qty: 90 3RF Rx Instructions: BRAND NECESSARY olopatadine [Pataday Twice Daily Relief] 0.1 % drops 1 drp ophthalmic (eye) BID Rx Instructions: separate doses by at least 6-8 hours Zepbound 2.5 mg/0.5 mL pen injector 2.5 mg subcut WK Rx Instructions: Fridays mecobalamin (vitamin B12) 1,000 mcg tablet,chewable 2,000 mcg PO DAILY cholecalciferol (vitamin D3) 50 mcg (2,000 unit) capsule 100 mcg PO DAILY albuterol sulfate 90 mcg/actuation Hfa Aerosol Inhaler 2 puff INHALATION Q4H PRN (Reason: Shortness Of Breath Or Wheezing) hydrocortisone 5 mg tablet 7.5 mg PO QAM Rx Instructions: May double in times of stress or illness; bromfenac 0.07 % drops 1 drp OPB DAILY fluticasone propionate 110 mcg/actuation HFA aerosol inhaler 2 puff INHALATION BID pregabalin 50 mg capsule 50 mg PO HS Referrals Referrals: Em Fleming MD [Primary Care Provider] - Discharge Problem: Lower back pain Qualifiers: Chronicity: unspecified Back pain laterality: midline Sciatica presence: w ithout sciatica Qualified Code(s): M54.50 - Low back pain, unspecified Hypotension Qualifiers: Hypotension type: unspecified hypotension type Qualified Code(s): I95.9 - Hypotension, unspecified Leukocytosis Qualifiers: Leukocytosis type: unspecified Qualified Code(s): D72.829 - Elevated white blood cell count, unspecified
[2024-09-12 08:25] LABS: Basophils # (auto) 0.07 K/uL (0.00-0.20); Basophils % (auto) 0.5 %; Eosinophils # (auto) 0.05 K/uL (0.00-0.50); Eosinophils % (auto) 0.4 %; Hematocrit (blood only) 38.6 % (37.0-47.0); Hemoglobin 13.2 g/dl (12.0-16.0); Immature Granulocytes # (auto) 0.09 K/uL (0.01-0.20); Immature Granulocytes % (auto) 0.7 %; Lymphocytes # (auto) 1.18 K/uL (1.20-3.40); Lymphocytes % (auto) 9.2 %; Mean Corpuscular Hemoglobin 30.3 pg (25.0-34.0); Mean Corpuscular Hgb Conc 34.2 g/dL (32.0-36.0); Mean Corpuscular Volume 88.7 fL (80.0-100.0); Mean Platelet Volume 10.7 fL (9.4-12.4); Monocytes % (auto) 5.5 %; Neutrophils % (auto) 83.7 %; Platelet Count 277 K/uL (130-400); RDW Coefficient of Variation 13.1 % (11.5-14.5); RDW Standard Deviation 42.9 fL (36.4-46.3); Red Blood Count 4.35 M/uL (4.20-5.40); White Blood Count 12.79 K/ul (4.8-10.8)
[2024-09-12 08:49] LABS: Albumin Globulin Ratio 1.4 (0.9-2); Albumin Level 4.1 gm/dl (3.4-5.0); BUN Creatinine Ratio 15.7 (10-20); Bilirubin,Total 1.1 mg/dl (0.2-1.0); Calcium 9.5 mg/dl (8.6-10.3); Creatinine Clr Calc Pharmacy 67.1 ml/min; Globulin 2.9 gm/dl (2.5-4.0); Potassium 3.7 mmol/L (3.5-5.1)
[2024-09-12] MEDS: HYDROmorphone INJ 0.5 MG/0.5 ML SYR IV PRN ×2 (08:50→18:37)
[2024-09-12 10:34] LABS: Appearance Urine Clear (Clear); Bacteria Urine Automated None Seen (None Seen); Bilirubin Urine Negative (Negative); Blood Urine Negative (Negative); Color Urine Dark Yellow; Glucose Urine UA Negative (Negative); Ketones Urine Trace (Negative); Leukocyte Esterase Urine Negative (Negative); Mucus Urine Present (None Prsent); Nitrite Urine Negative (Negative); Protein Urine 1+ (Negative); RBC Urine Automated 0-2 /hpf (0-2); Specific Gravity Urine 1.034 (1.000-1.030); Urobilinogen Urine Negative (Negative); pH Urine 7.5 (4.5-7.5)
[2024-09-12] MEDS: SODIUM CHLORIDE 0.9% 1,000 ML IV ONE (11:09)
[2024-09-12] MEDS: cefTRIAXone SODIUM 2,000 MG/50 ML BAG IV STA (11:09)
[2024-09-12] MEDS: HYDROCORTISONE SOD SUCCINATE 100 MG/2 ML VIAL IV STA (13:24)
[2024-09-12] MEDS: SODIUM CHLORIDE 0.9% 500 ML IV ONE (14:00)
--- NOTE | 2024-09-12 14:09 | History & Physical Report ---
Date of Service September 12, 2024 Assessment & Plan (1) Intractable low back pain: (2) Lumbar spinal stenosis: (3) Hypoxia: (4) Hypotension: (5) Secondary adrenal insufficiency: (6) Abnormal urinalysis: Plan Payton Lai is a 68-year-old female with PMHx significant for hypothyroidism, chronic frontal sinusitis, asthma, fibromyalgia, osteoarthritis, history of migraines, sicca syndrome with keratoconjunctivitis, secondary adrenal insufficiency due to long-term use of exogenous glucocorticoids and other problems listed below who presented to the ED on 09/12/24 for evaluation of intractable lower back pain. Patient with significant lower back pain and BLE neuropathy since last May. Patient had previously received corticosteroid injections into her lower back, pursued outpatient PT and used PRN Tramadol + scheduled Lyrica without any notable relief thus far. Patient had an MRI of her lumbar spine performed as an outpatient back in June of last year which revealed the following: multilevel multifactorial degenerative changes in the lumbar spine (most prominent at L4-5 level where there is moderate to severe spinal canal stenosis), narrowing of the lateral recesses, mild to moderate right and mild left neural foraminal narrowing + moderate right and mild to moderate left L5-S1 foraminal stenosis. Patient reports that she was recently seen by [facility] back in July whom at that time recommended against surgery. Rest of history as per HPI. Intractable Lower Back Pain, Lumbar Spine Stenosis: Initial laboratory evaluation notable for mild leukocytosis likely 2/2 pain but was otherwise grossly unremarkable. Will get updated lumbar spine MRI. Ortho spine consulted. Also consulted pain management for further recommendations; continue pain control with scheduled po Tylenol, PRN po oxycodone IR, PRN IV Dilaudid + Lidoderm patch/Voltaren on lower back region. PT/OT evaluations. Continue Lyrica. Acute Hypoxia Requiring Supplemental O2: Patient was noted to be acutely hypoxic in the ED with O2 sat of 83% on RA; suspect this was related to IV narcotic use in the ED. Patient was not short of breath when this occurred. She was placed on 4L via NC with good rebound of her O2 sat before being transitioned down to 2L in the ED. She was on 1L via NC at the time of my evaluation around 4PM and saturating well. Patient without any respiratory complaints; wean O2 as tolerated. Will however check CXR and respiratory BioFire panel given leukocytosis to complete infectious work-up. Continuous telemetry monitoring on board. Relative Hypotension ISO Secondary Adrenal Insufficiency: Patient hypotensive in the ED with BP in the 90s/50s at time of sign-out. S/p 1.5L NSS in the ED. She received a stress dose of IV Solu-Cortef in the ED; BP subsequently improved to 110s/70s. Continue IV Solu-Cortef 50mg Q6H x 3 bags; continuous telemetry monitoring on board, closely watch BP. She can resume home Coref 7.5mg daily tomorrow AM. Patient follows with [facility]; patient with secondary adrenal insufficiency due to long-term use of exogenous glucocorticoids --> planning to taper her off hydrocortisone by late 2023. Hydrocortisone was started in December 2023. Abnormal Urinalysis, Urinary Incontinence: UA notable for WBC 11-20 without evidence of bacteria. Patient denies any dysuria however she has been experiencing significant urinary incontinence ISO her intractable lower back pain as per above - certainly predisposes her to development of UTI. Will cover with IV Rocephin for now pending urine culture results. Probiotic added on. Other Chronic Medical Conditions: * Osteoarthritis - Patient endorsing pain in L knee, will obtain XR. Hypothyroidism - Continue levothyroxine. TSH 10.80, will check T4. DVT Prophylaxis: SCDs/TEDs for now pending ortho spine evaluation. Code Status: FULL CODE PCP: Em Fleming MD Disposition: Admit to Med/Telemetry for further inpatient evaluation and management. Patient seen in collaboration with Dr. Perry. Please see addendum. I spent a total of 60 minutes coordinating, documenting, and providing care for this patient excluding time spent in the performance of separately billed services. This included personally reviewing all current laboratories and imaging studies, medical reconciliation, outpatient chart review and discussion with specialists. This chart was completed in part utilizing Speech Voice Recognition Software. Grammatical errors, random word insertions, pronoun errors, and incomplete sentences are an occasional consequence of this system due to software limitations, ambient noise, and hardware issues. Any formal questions or concerns about the content, text, or information contained within the body of this dictation should be directly addressed to the provider for clarification. History of Present Illness Chief Complaint: Intractable Back Pain Primary Care Provider: Em Fleming MD Payton Lai is a 68-year-old female with PMHx significant for hypothyroidism, chronic frontal sinusitis, asthma, fibromyalgia, history of migraines, sicca syndrome with keratoconjunctivitis, secondary adrenal insufficiency due to long- term use of exogenous glucocorticoids and other problems listed below who presented to the ED on 09/12/24 for evaluation of intractable lower back pain. History obtained from the patient, discussion with ED provider and associated chart review. Patient with significant lower back pain since last May. Patient had previously been receiving corticosteroid injections into her lower back without any significant relief. Patient had an MRI of her lumbar spine performed as an outpatient back in June last year which revealed the following: multilevel multifactorial degenerative changes in the lumbar spine (most prominent at L4-5 level where there is moderate to severe spinal canal stenosis), narrowing of the lateral recesses, mild to moderate right and mild left neural foraminal narrowing + moderate right and mild to moderate left L5-S1 foraminal stenosis. Patient reports that she was recently seen by [facility] back in July who at that time recommended against surgery. Patient was enrolled with outpatient physical therapy without much improvement in her overall mobility. Patient has been taking PRN tramadol at home to help with her pain which seems to only work for a short amount of time, maybe a few hours at best she mentions. Patient was recently started on Lyrica by her PCP which she has not noticed a significant change with however she has only been on this medication for a few days. Patient does have a history of urinary incontinence however she does report that her incontinence issues seem to be a bit worse since her back pain has been progressively worsened. She did have a bladder scan performed in the ED with 0cc of PVR. No reported fecal incontinence. No recent fevers, chills or body aches. No recent falls or trauma. She does endorse significant osteoarthritic pain in both of her knees (L > R) which had been getting corticosteroid injections for in the past. Patient had to stop receiving corticosteroid injections secondary to her adrenal insufficiency. She does report get knee gel injections in the past which provided her with short-term relief. She has issues with mobility at baseline because her osteoarthritis. However, over the past week, her ambulatory function status has drastically declined as her lower back pain has progressively worsened. Patient did have some dry heaving this morning prior to presenting to the ED however this has since resolved. No reported episodes of vomiting. Patient reports it took her an hour to get dressed this morning in order to come to the ED due to her back pain significantly limiting her mobility. Patient reports her lower back pain feels like a tightness however she does experience sharp twinges of pain intermittently that feel like "shocks." She has also been experiencing some numbness and tingling in her BLE, typically her LLE is worse than her RLE. Allergies Allergy/AdvReac Type Severity Reaction Status Date / Time bee venom protein (honey bee) Allergy Severe EXTREME Verified 09/12/24 09:22 SWELLING AT SITES, EYES TURNED YELLOW dog dander Allergy Intermediate BLOW UP Verified 09/12/24 09:22 ALL OVER hydroxyzine Allergy Intermediate SWOLLEN Verified 09/12/24 09:22 HANDS AND FEET, NAUSEA Iodinated Contrast Media Allergy Intermediate IV SITE Verified 09/12/24 09:22 BUBBLED UP AND HIVES ALL OVER loratadine [From Claritin-D] Allergy Intermediate SWELLING Verified 09/12/24 09:22 AND RED RASH mold Allergy Intermediate BLOWS UP Verified 09/12/24 09:22 WITH SWELLING nickel Allergy Intermediate WELTS Verified 09/12/24 09:22 pseudoephedrine Allergy Intermediate SWELLING Verified 09/12/24 09:22 [From Claritin-D] AND RED RASH shellfish derived Allergy Intermediate DIZZINESS, Verified 09/12/24 09:22 N/V, LOBSTER--RASH, HIVES Sulfa (Sulfonamide Allergy Intermediate SWELLING, Verified 09/12/24 09:22 Antibiotics) RASH bupropion [From Contrave] Allergy Swelling Verified 09/12/24 09:22 of Lip/Tongue/Throat chromium Allergy Unknown Verified 09/12/24 09:22 duloxetine Allergy Unknown Verified 09/12/24 09:22 naltrexone [From Contrave] Allergy Swelling Verified 09/12/24 09:22 of Lip/Tongue/Throat spider venom Allergy Unknown Verified 09/12/24 09:22 gabapentin AdvReac Intermediate BLURRING Verified 09/12/24 09:22 OF VISION nickel Allergy Unknown Uncoded 09/12/24 09:22 Home Medications Medication Instructions Recorded Confirmed Type albuterol sulfate 90 mcg/actuation 2 puff inhalation Q4H PRN 10/01/20 09/12/24 History aerosol inhaler Shortness Of Breath Or Wheezing olopatadine 0.1 % eye drops 1 drp ophthalmic (eye) BID 10/22/23 09/12/24 History (Pataday Twice Daily Relief) tirzepatide (weight loss) 2.5 2.5 mg subcut WK 01/11/24 09/12/24 History mg/0.5 mL subcutaneous pen injector (Zepbound) bromfenac 0.07 % eye drops 1 drp OPB DAILY 06/24/24 09/12/24 History hydrocortisone 5 mg tablet 7.5 mg PO QAM 06/24/24 09/12/24 History cholecalciferol (vitamin D3) 50 100 mcg PO DAILY 07/07/24 09/12/24 History mcg (2,000 unit) capsule mecobalamin (vitamin B12) 1,000 2,000 mcg PO DAILY 07/07/24 09/12/24 History mcg chewable tablet Synthroid 88 mcg tablet 88 mcg PO DAILY #90 tabs 09/08/24 09/12/24 Rx (levothyroxine) fluticasone propionate 110 2 puff inhalation BID 09/12/24 09/12/24 History mcg/actuation HFA aerosol inhaler lidocaine 5 % topical patch 1 patch topical DAILY PRN Back Pain 09/12/24 09/12/24 History pregabalin 50 mg capsule 50 mg PO HS 09/12/24 09/12/24 History Past Med/Surg History Problem List (Updated 09/12/24 @ 20:03 by Juany Hoover PA-C) Lumbar spinal stenosis Hypoxia Abnormal urinalysis Intractable low back pain Leukocytosis (Acute) Adrenal insufficiency (Acute) Acute UTI (Acute) Hypotension (Acute) Lower back pain (Acute) Overweight (BMI 25.0-29.9) 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 Secondary adrenal insufficiency Wesley's thyroiditis Chest pain (Acute) No significant past surgical history Hypothyroid (Chronic) Medical History Depression Asthma Surgical History History of tonsillectomy History of adenoidectomy History of hysterectomy Social History Smoking Status: Never smoker Hx Alcohol Use: No Hx Substance Use: No Preferred Language: Greek Advertising Teacher Required: No Beliefs That Will Affect Care: None marital status: Current Living Situation: Spouse Current Living Situation Comment: home with current occupational status: employed Other Information That Helps Us Care for You: No Feels Safe at Home: Yes Safety Concerns: Feels Safe At This Time Assistive Devices: Glasses and Oxygen - Continuous Assistive Devices Comment: placed on O2 with pain medications in ED Review of Systems Review of Systems: At least ten systems reviewed and negative, except as noted in the HPI. Physical Exam Physical Exam: Please refer to Dr. Perry's addendum for physical examination. Results & Data Results & Data Vital Signs (Past 12 Hours) Vital Signs Temp Pulse Resp BP Pulse Ox O2 Del Method O2 Flow Rate 09/12/24 14:00 70 16 99/58 L 98 Room Air 09/12/24 13:00 70 19 85/52 L 95 Nasal Cannula 2 09/12/24 12:09 63 16 99 Nasal Cannula 2 09/12/24 12:00 98/64 L 09/12/24 11:12 76 17 98 Nasal Cannula 2 09/12/24 11:03 58 L 12 97 Nasal Cannula 2 09/12/24 11:00 99/56 L 09/12/24 10:18 61 19 96 Nasal Cannula 2 09/12/24 10:11 92/57 L 09/12/24 09:00 68 17 96/56 L 97 Nasal Cannula 2 09/12/24 08:38 99 Nasal Cannula 4 09/12/24 08:28 83 L Room Air 09/12/24 08:08 86 09/12/24 07:34 36.6 C 89 20 97/64 L 98 Room Air Laboratory Results Short CBC 09/12/24 Range/Units 08:00 WBC 12.79 H (4.8-10.8) K/ul Hgb 13.2 (12.0-16.0) g/dl Hct 38.6 (37.0-47.0) % Plt Count 277 (130-400) K/uL BMP 09/12/24 08:00 Sodium 135 L Potassium 3.7 Chloride 98 Carbon Dioxide 28 BUN 13 Creatinine 0.83 Glucose 145 H Calcium 9.5 Liver Function 09/12/24 Range/Units 08:00 Total Bilirubin 1.1 H (0.2-1.0) mg/dl AST 13 (13-39) U/L ALT 9 (7-52) U/L Alkaline Phosphatase 65 (34-104) U/L Albumin 4.1 (3.4-5.0) gm/dl Urine 09/12/24 Range/Units 10:05 Urine Color Dark Yellow Urine Appearance Clear (Clear) Urine pH 7.5 (4.5-7.5) Ur Specific Bunch 1.034 H (1.000-1.030) Urine Protein 1+ H (Negative) Urine Glucose (UA) Negative (Negative) Medications Administered Hydromorphone HCl (Hydromorphone Inj 0.5 Mg/0.5 Ml Syr) 0.5 mg IV Q15M PRN PRN Reason: Pain Stop: 09/26/24 08:01 Last Admin: 09/12/24 12:29 Dose: 0.5 mg Documented By: Admin: 09/12/24 10:12 Dose: 0.5 mg Documented By: Admin: 09/12/24 08:50 Dose: 0.5 mg Documented By: JOSE Discontinued Medications Diazepam (Diazepam 5 Mg/Ml 10ml Vial) 2.5 mg IV NOW STA Stop: 09/12/24 08:03 Last Admin: 09/12/24 08:14 Dose: 2.5 mg Documented By: JOSE Hydrocortisone Sodium Succinate (Hydrocortisone Sod Succinate 100 Mg/2 Ml Vial) 100 mg IV NOW STA Stop: 09/12/24 13:20 Last Admin: 09/12/24 13:24 Dose: 100 mg Documented By: JOSE Hydromorphone HCl (Hydromorphone Inj 0.5 Mg/0.5 Ml Syr) 0.5 mg IV NOW STA Stop: 09/12/24 08:03 Last Admin: 09/12/24 08:14 Dose: 0.5 mg Documented By: JOSE Acetaminophen (Ofirmev) 1,000 mg in 100 mls @ 400 mls/hr IV NOW STA Stop: 09/12/24 08:16 Last Infusion: 09/12/24 08:37 Dose: Infused Documented By: Admin: 09/12/24 08:14 Dose: 400 mls/hr Documented By: JOSE Sodium Chloride (Nss) 1,000 mls @ 999 mls/hr IV .Q1H1M ONE Stop: 09/12/24 12:01 Last Infusion: 09/12/24 12:13 Dose: Infused Documented By: Admin: 09/12/24 11:09 Dose: 999 mls/hr Documented By: JOSE Ceftriaxone Sodium (Rocephin) 2,000 mg in 50 mls @ 100 mls/hr IV NOW STA Stop: 09/12/24 11:30 Last Infusion: 09/12/24 12:13 Dose: Infused Documented By: Admin: 09/12/24 11:09 Dose: 100 mls/hr Documented By: JOSE Sodium Chloride (Nss) 500 mls @ 999 mls/hr IV .Q31M ONE Stop: 09/12/24 14:12 Last Admin: 09/12/24 14:00 Dose: 999 mls/hr Documented By: JOSE Ketorolac Tromethamine (Ketorolac Tromethamine 15 Mg/Ml Vial) 15 mg IV NOW STA Stop: 09/12/24 08:03 Last Admin: 09/12/24 08:14 Dose: 15 mg Documented By: JOSE Ondansetron HCl (Ondansetron Inj 2 Mg/Ml 2 Ml Vial) 4 mg IV NOW STA Stop: 09/12/24 08:03 Last Admin: 09/12/24 08:14 Dose: 4 mg Documented By: JOSE Ondansetron HCl (Ondansetron Inj 2 Mg/Ml 2 Ml Vial) 4 mg IV NOW STA Stop: 09/12/24 12:23 Last Admin: 09/12/24 12:29 Dose: 4 mg Documented By: JOSE Code Status & VTE Plan Code Status FULL CODE VTE Prophylaxis Plan VTE Prophylaxis will be ordered: Yes Supervising Physician Co-Signing Physician Notes Attending Addendum: Case reviewed with the advanced practitioner. I have personally performed a history and physical examination on the patient. I have reviewed the advanced practitioner's documentation on the date of service referenced in note, and I agree with, and take responsibility for the plan of care. please refer to her notes for full details patient seen and examined, records reviewed by myself as well on exam, patient Seen sitting up in bed, not in distress, but still having pain States her back pain has improved from 10, now 7 Radiates to left lower leg, with some paresthesias Also having some left knee pain No other symptoms No fevers or chills VS noted and reviewed oriented X 3, not in distress, speaks in sentences with no effort nor accessory muscle use normal rate, regular rhythm, no murmurs clear breath sounds bilaterally non distended, soft, nontender no bipedal edema, erythema, warmth Positive straight leg test on the left no neuro deficits all labs, imaging noted and reviewed ASSESSMENT AND PLAN Intractable back pain Lumbar spine stenosis Adrenal insufficiency Lumbar spine MRI Left knee x-ray Pain control with scheduled IV Ofirmev every 8 hours, as needed IV Toradol and Dilaudid Stress dose IV hydrocortisone in light of marginal blood pressure, will also help with anti-inflammatory effect Consult orthopedic spine service, and pain management service Monitor blood pressure closely, resume usual p.o. hydrocortisone carefully other diagnoses and plan of care as per advanced practitioner's notes plan of care discussed with patient and her in detail and at length all questions answered they are understanding, agreeable, comfortable with the plan of care Alfredo Perry MD (2) Lumbar spinal stenosis Neurogenic claudication status: unspecified Qualified Code(s): M48.061 - Spinal stenosis, lumbar region without neurogenic claudication (4) Hypotension Hypotension type: unspecified hypotension type Qualified Code(s): I95.9 - Hypotension, unspecified
[2024-09-12] MEDS ORDERED: oxyCODONE HCL IR 5 MG TAB (IMMEDIATE RELEASE) PO PRN (15:11)
[2024-09-12] MEDS ORDERED: HYDROCORTISONE SOD SUCCINATE 100 MG/2 ML VIAL IV SCH (15:11)
[2024-09-12] MEDS ORDERED: ONDANSETRON INJ 2 MG/ML 2 ML VIAL IV PRN (15:11)
[2024-09-12] MEDS: LIDOCAINE 5% 1 PATCH TD STA (16:46)
[2024-09-12] MEDS: SODIUM CHLORIDE 0.9% 1,000 ML IV SCH (16:47)
[2024-09-12] MEDS: ACETAMINOPHEN 500 MG TAB PO SCH (16:47)
--- NOTE | 2024-09-12 17:32 | XRay Report ---
EXAM: XR knee LT 3V CLINICAL HISTORY: Left knee pain. TECHNIQUE: X-ray images of the left knee were obtained in anteroposterior (AP), lateral, and sunrise/skyline (patellar) projections. COMPARISON: No prior studies available for comparison. FINDINGS: Bone Structure: Bone structure is normal and well-aligned. No evidence of acute fractures or dislocations. No osseous lesions or abnormalities identified. Prominent tibial spine, and mild subchondral sclerosis suggestive of mild (grade I) osteoarthritic changes. Joint Spaces: Joint spaces are preserved. No significant narrowing of the medial or lateral compartments. Articular Surfaces: Articular surfaces are smooth and intact. No signs of osteophyte formation or subchondral sclerosis. Patella: Patella is normal in position and alignment. No evidence of patellar dislocation or subluxation. Soft Tissues: Periarticular soft tissues appear normal and unremarkable. No soft tissue swelling, calcifications, or foreign bodies noted. Additional Findings: No evidence of joint effusion. IMPRESSION: Prominent tibial spine, and mild subchondral sclerosis suggestive of mild (grade I) osteoarthritic changes. Disclaimer: A subtle bone abnormality or fracture may not be readily apparent on X-rays, thus clinical correlation and further imaging including follow-up CT, MRI, or follow-up X-rays are advised as needed. Electronically signed by Betsy Schuster 09-12-2024 5:32 PM
[2024-09-12] MEDS: HYDROCORTISONE SOD 50 MG in SYRINGE 0 ML IV SCH (18:32)
[2024-09-12] MEDS: ADVANCED PROBIOTIC 625 MG CAPSULE PO SCH (18:32)
--- NOTE | 2024-09-12 18:45 | XRay Report ---
INDICATION: Shortness of breath. TECHNIQUE: Frontal radiograph of the chest. COMPARISON: Radiograph from 06/24/2024. FINDINGS: The cardiomediastinal silhouette and pulmonary vasculature appear within normal limits. No infiltrate, pleural effusion or pneumothorax. No acute osseous abnormality evident. IMPRESSION: No acute cardiopulmonary process. Electronically signed by Gal Jiang 09-12-2024 6:45 PM
--- NOTE | 2024-09-12 19:37 | Magnetic Resonance Report ---
EXAM: MR lumbar spine wo con CLINICAL HISTORY: Severe low back pain for several days,Ni recent injury, injury 20 years ago TECHNIQUE: Different pulse sequences were performed in different planes for the lumbar spine without contrast. Images were sent through PACs for diagnostic interpretation. COMPARISON: None. FINDINGS: Preserved physiological lumbar lordosis. The scanned intervertebral discs show variable degrees of degeneration denoted by low signal intensity on T2 WI with a relative reduction of their heights. Marginal osteophytes are seen. Osseous hemangioma and Modic I and II marrow changes are seen, with no other remarkable marrow changes. 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 There is degenerative spondylolisthesis at the L4-L5 level measuring 3.6 mm. There is degenerative retrolisthesis at the L5-S1 level measuring 4.2 mm. Posteriorly oriented orthostatic subcutaneous edema is seen opposite the lumbar and sacral vertebrae, exhibiting low signals on T1 WI and bright signals on T2 on STIRWI. Maintained vertebral heights with intact vertebral bodies and neural arches. Level by Level analysis: T12-L1: There is no focal disc pathology, spinal canal stenosis, or neural foraminal stenosis. L1-L2: There is no focal disc pathology, spinal canal stenosis, or neural foraminal stenosis. L2-L3: There is no focal disc pathology, spinal canal stenosis, or neural foraminal stenosis. L3-L4: There are 2.5 mm subarticular protrusions compromising subarticular recesses and neural foramina with impingement of the emerging nerve roots. L4-L5: There is a 3.6 mm degenerative spondylolisthesis and a 3.6 mm cranial buckling of the intervening disc indenting the thecal sac, compromising the subarticular recesses. There is moderate spinal canal stenosis and moderate bilateral neural foraminal stenosis with impingement of the emerging nerve roots. There is a foreshortening of the midsagittal AP dimension of the spinal canal (closed arch type of spondylolisthesis) (diagnostic hallmark).extra-articular synovial cyst is seen associating the left facet joints arthropathy. L5-S1: There is a 3.8 mm annular bulge and 8 mm central and right central and subarticular extrusion with caudal migration indenting the thecal sac, compromising the subarticular recesses more on the right side. There is mild central canal stenosis and severe bilateral neural foraminal stenosis with impingement of the emerging nerve roots. Degenerative retrolisthesis buckled ligamenta flava and arthropathic facet joints augment effects. The lower dorsal spinal cord, conus medullaris, and cauda equina nerve roots are unremarkable. Altered signals at the quadratus lumborum and erector spinae muscles exhibiting bright feathery signals on STIRWI consistent with grade one myogenic strain. No developmental canal stenosis. IMPRESSION: 1. Spondylodegenerative lumbar disc disease. 2. Osseous hemangioma and Modic I and II marrow changes. 3. 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 4. There is degenerative spondylolisthesis at the L4-L5 level measuring 3.6 mm. 5. There is degenerative retrolisthesis at the L5-S1 level measuring 4.2 mm. 6. Posteriorly oriented orthostatic subcutaneous edema is seen opposite the lumbar and sacral vertebrae. 7. grade one myogenic strain of the quadratus lumborum and erector spinae muscles. 8. L3-L4: There are 2.5 mm subarticular protrusions. 9. L4-L5: There is a 3.6 mm degenerative spondylolisthesis and a 3.6 mm cranial buckling of the intervening disc. There is a foreshortening of the midsagittal AP dimension of the spinal canal (closed arch type of spondylolisthesis) (diagnostic hallmark). 10. L5-S1: There is a 3.8 mm annular bulge and 8 mm central and right central and subarticular extrusion with caudal migration. 11. Multilevel lumbar disc pathologies at the L3-L4, L4-L5 and L5-S1 levels with effects exerted upon the spinal canal, subarticular recesses, and neural foramina with impingement of the emerging nerve roots. Degenerative spondylolisthesis, retrolisthesis, buckled ligamenta flava, and arthropathic facet joints augment effects. 12. The reported findings explain the current clinical status. Electronically signed by Betsy Schuster 09-12-2024 7:37 PM
[2024-09-12] MEDS: PREGABALIN 50 MG CAP PO SCH (20:15)
[2024-09-12] MEDS: DICLOFENAC SOD 1% GEL 100 GM TUBE EXT SCH (20:15)
[2024-09-12 23:27] LABS: Adenovirus PCR Not Detected (NotDetected); Bordetella parapertussis PCR Not Detected (NotDetected); Bordetella pertussis PCR Not Detected (NotDetected); Chlamydia pneumoniae PCR Not Detected (NotDetected); Coronavirus 229E PCR Not Detected (NotDetected); Coronavirus CoV-2 (COVID19)PCR Not Detected (NotDetected); Coronavirus HKU1 PCR Not Detected (NotDetected); Coronavirus NL63 PCR Not Detected (NotDetected); Coronavirus OC43PCR Not Detected (NotDetected); Human Metapneumovirus PCR Not Detected (NotDetected); Influenza A PCR Not Detected (NotDetected); Influenza B PCR Not Detected (NotDetected); Mycoplasma pneumoniae PCR Not Detected (NotDetected); Parainfluenza Virus 1 PCR Not Detected (NotDetected); Parainfluenza Virus 2 PCR Not Detected (NotDetected); Parainfluenza Virus 3 PCR Not Detected (NotDetected); Parainfluenza Virus 4 PCR Not Detected (NotDetected); Respiratory Syncytial VirusPCR Not Detected (NotDetected); Rhinovirus/Enterovirus PCR Not Detected (NotDetected)
[2024-09-13] MEDS: LEVOTHYROXINE SODIUM 88 MCG TABLET PO SCH (05:45)
[2024-09-13 06:05] LABS: BUN Creatinine Ratio 17.1 (10-20); Creatinine Clr Calc Pharmacy 79.6 ml/min
[2024-09-13 06:09] LABS: Hematocrit (blood only) 34.9 % (37.0-47.0); Hemoglobin 11.9 g/dl (12.0-16.0); Mean Corpuscular Hemoglobin 30.4 pg (25.0-34.0); Mean Corpuscular Hgb Conc 34.1 g/dL (32.0-36.0); Mean Platelet Volume 11.1 fL (9.4-12.4); Platelet Count 263 K/uL (130-400); RDW Coefficient of Variation 12.9 % (11.5-14.5); RDW Standard Deviation 42.5 fL (36.4-46.3); Red Blood Count 3.92 M/uL (4.20-5.40); White Blood Count 10.82 K/ul (4.8-10.8)
[2024-09-13 06:19] LABS: Thyroid Stimulating Hormone 1.505 uIu/ml (0.300-4.500)
--- NOTE | 2024-09-13 07:20 | XRay Report ---
EXAM: XR lumbar spine flex/ext only CLINICAL HISTORY: LOW BACK PAIN [facility] TECHNIQUE: X-ray images of the lumbar spine were obtained in 3 views: lateral and dynamic flexion and extension projections. COMPARISON: study dated 09/12/2024 FINDINGS: Grade I spondylolisthesis of L4 over L5 Grade I retrolystheisis of L5 over S1 Lumbar spondylosis seen as sclerosed end plates, anterior lipping and reduced L5-S1 disc height Osteoporosis seen as generalized decreased bone density Muscle spasm seen as straightened lumbar curvature No abnormal curvature, such as scoliosis or lordosis. Vertebral Bodies: Vertebral bodies are of normal height and morphology. No evidence of fractures, compression deformities, or significant osseous lesions. Soft Tissues: Paraspinal soft tissues are of normal thickness. No evidence of paraspinal soft tissue swelling or mass effect. Additional Findings: No other significant abnormalities noted. IMPRESSION: 1. Grade I spondylolisthesis of L4 over L5. 2. Grade I retrolystheisis of L5 over S1. 3. Lumbar spondylosis seen as sclerosed end plates, anterior lipping and reduced L5-S1 disc height. 4. Osteoporosis seen as a generalized decreased bone density. 5. Muscle spasm seen as straightened lumbar curvature. 6. No interval changes. Disclaimer: A subtle bone abnormality or fracture may not be readily apparent on X-rays, thus clinical correlation and further imaging including follow-up CT, MRI, or follow-up X-rays are advised as needed. Electronically signed by Betsy Schuster 09-13-2024 07:20 AM
[2024-09-13] MEDS: FLUTICASONE FUROATE 200MCG 14 PUFFS/INHALER INH SCH (08:19)
[2024-09-13] MEDS: CHOLECALCIFEROL 25 MCG (1000 UNITS) TAB PO SCH (08:20)
[2024-09-13] MEDS: CYANOCOBALAMIN (B-12) 500 MCG TABLET PO SCH (08:20)
[2024-09-13] MEDS: HYDROCORTISONE 10 MG TAB PO SCH (08:20)
[2024-09-13] MEDS: POLYETHYLENE (MIRALAX) 17 GM PACK PO SCH (09:00)
[2024-09-13] MEDS: bisacodyL 5 MG TABEC PO SCH (09:01)
--- NOTE | 2024-09-13 09:45 | Pain Management Consultation ---
Date of Consultation September 13, 2024 Assessment & Plan (1) Lumbar spinal stenosis: Neurogenic claudication status: unspecified Qualified Code(s): M48.061 - Spinal stenosis, lumbar region without neurogenic claudication (2) Abnormal urinalysis: (3) Intractable low back pain: (4) Secondary adrenal insufficiency: Plan 1. Given the patient's prior experience with a lumbar epidural steroid inj ection I would not recommend repeating. 2. Recommend physical therapy 3. I have initiated her on tizanidine 4 mg 3 times daily. 4. She is to have an evaluation by Dr. Dumont to discuss possible surgical options. 5. If surgical intervention is not recommended then consider placing the patient on Toradol 15 mg every 6 hours for the next 5 days for anti-inflammatory purposes. 6. Patient does have oxycodone ordered as needed as well as IV Dilaudid. 7. Will sign off on the patient. Please contact with any questions or concerns. History of Present Illness Reason for Consultation: back pain Attending Physician: Andreia Puente MD History of Present Illness This is a 68-year-old female that has been seen at the [facility] for intractable low back pain. She does have a history of back issues where she has been following with [facility] spine surgery as well as [facility] pain management. She has received an L5-S1 interlaminar epidural steroid injection on 11/18/2023 and reports a terrible experience with the injection. She states that during the injection she felt a burning searing pain from the low back down to his feet. She describes "being picked up and dipped into a vat of fire." Patient states that the low back pain improved in time but it returns around [place] without any specific injury. She has been to the emergency department on several occasions and followed up with her PCP. Her PCP placed her on Lyrica 50 mg at bedtime and after a week was instructed to increase to twice a day which the patient states did not provide any adequate pain relief. She had previously tried Tylenol and Aleve as well as applying ice onto the low back. [facility] did discuss physical therapy, trying an epidural steroid injection again or consideration of surgery. She had started physical therapy and states that it aggravated her pain. Pain is located along the low back. No true radicular symptoms. She states that the left leg does feel like it is intermittently falling asleep. Pain is aggravated with prolonged sitting, prolonged standing, prolonged walking. Bladder incontinence has slightly worsened since the low back pain became worse. No bowel incontinence, saddle anesthesia, foot drop, falls. Case discussed with Dr. Conrad Allergies Allergy/AdvReac Type Severity Reaction Status Date / Time bee venom protein (honey bee) Allergy Severe EXTREME Verified 09/12/24 09:22 SWELLING AT SITES, EYES TURNED YELLOW dog dander Allergy Intermediate BLOW UP Verified 09/12/24 09:22 ALL OVER hydroxyzine Allergy Intermediate SWOLLEN Verified 09/12/24 09:22 HANDS AND FEET, NAUSEA Iodinated Contrast Media Allergy Intermediate IV SITE Verified 09/12/24 09:22 BUBBLED UP AND HIVES ALL OVER loratadine [From Claritin-D] Allergy Intermediate SWELLING Verified 09/12/24 09:22 AND RED RASH mold Allergy Intermediate BLOWS UP Verified 09/12/24 09:22 WITH SWELLING nickel Allergy Intermediate WELTS Verified 09/12/24 09:22 pseudoephedrine Allergy Intermediate SWELLING Verified 09/12/24 09:22 [From Claritin-D] AND RED RASH shellfish derived Allergy Intermediate DIZZINESS, Verified 09/12/24 09:22 N/V, LOBSTER--RASH, HIVES Sulfa (Sulfonamide Allergy Intermediate SWELLING, Verified 09/12/24 09:22 Antibiotics) RASH bupropion [From Contrave] Allergy Swelling Verified 09/12/24 09:22 of Lip/Tongue/Throat chromium Allergy Unknown Verified 09/12/24 09:22 duloxetine Allergy Unknown Verified 09/12/24 09:22 naltrexone [From Contrave] Allergy Swelling Verified 09/12/24 09:22 of Lip/Tongue/Throat spider venom Allergy Unknown Verified 09/12/24 09:22 gabapentin AdvReac Intermediate BLURRING Verified 09/12/24 09:22 OF VISION nickel Allergy Unknown Uncoded 09/12/24 09:22 Home Medications Medication Instructions Recorded Confirmed Type albuterol sulfate 90 mcg/actuation 2 puff inhalation Q4H PRN 10/01/20 09/12/24 History aerosol inhaler Shortness Of Breath Or Wheezing olopatadine 0.1 % eye drops 1 drp ophthalmic (eye) BID 10/22/23 09/12/24 History (Pataday Twice Daily Relief) tirzepatide (weight loss) 2.5 2.5 mg subcut WK 01/11/24 09/12/24 History mg/0.5 mL subcutaneous pen injector (Zepbound) bromfenac 0.07 % eye drops 1 drp OPB DAILY 06/24/24 09/12/24 History hydrocortisone 5 mg tablet 7.5 mg PO QAM 06/24/24 09/12/24 History cholecalciferol (vitamin D3) 50 100 mcg PO DAILY 07/07/24 09/12/24 History mcg (2,000 unit) capsule mecobalamin (vitamin B12) 1,000 2,000 mcg PO DAILY 07/07/24 09/12/24 History mcg chewable tablet Synthroid 88 mcg tablet 88 mcg PO DAILY #90 tabs 09/08/24 09/12/24 Rx (levothyroxine) fluticasone propionate 110 2 puff inhalation BID 09/12/24 09/12/24 History mcg/actuation HFA aerosol inhaler lidocaine 5 % topical patch 1 patch topical DAILY PRN Back Pain 09/12/24 09/12/24 History pregabalin 50 mg capsule 50 mg PO HS 09/12/24 09/12/24 History Patient History Medical History Depression Asthma Surgical History (Updated 09/13/24 @ 09:55 by Melody Jean PA-C) History of tonsillectomy History of adenoidectomy History of hysterectomy Social History Smoking Status: Never smoker Hx Alcohol Use: No Hx Substance Use: No Preferred Language: Hebrew 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 HEAD/FACE: Normocephalic and atraumatic. EYES: No drainage or conjunctival injection. ENT: Nose without bleeding or discharge. Oral mucosa moist. NECK: Full ROM without apparent pain. No swelling or masses noted. RESPIRATORY: Patient with unlabored breathing. No signs of respiratory distress. CHEST/AXILLA: Chest movement symmetrical. No deformities noted. ABDOMEN/GI: No distension BACK: Normal lumbar lordosis. Diffuse hyperalgesia along the lumbar region. Nonfocal to midline, SI joint, facet joints. Mild lumbar paravertebral muscle spasm without trigger points noted. SKIN: [place], warm and dry. No rash noted. MS/EXTREMITY: No swelling, no deformities. Moving extremities appropriately. NEURO: Alert and appears oriented. Speech is fluent. Cranial Nerves are grossly intact. PSYCH: Alert, pleasant, affect is calm Results (Pain Clinic) Diagnostic Review MRI Findings: EXAM: MR lumbar spine wo con CLINICAL HISTORY: Severe low back pain for several days,Ni recent injury, injury 20 years ago TECHNIQUE: Different pulse sequences were performed in different planes for the lumbar spine without contrast. Images were sent through PACs for diagnostic interpretation. COMPARISON: None. FINDINGS: Preserved physiological lumbar lordosis. The scanned intervertebral discs show variable degrees of degeneration denoted by low signal intensity on T2 WI with a relative reduction of their heights. Marginal osteophytes are seen. Osseous hemangioma and Modic I and II marrow changes are seen, with no other remarkable marrow changes. 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 There is degenerative spondylolisthesis at the L4-L5 level measuring 3.6 mm. There is degenerative retrolisthesis at the L5-S1 level measuring 4.2 mm. Posteriorly oriented orthostatic subcutaneous edema is seen opposite the lumbar and sacral vertebrae, exhibiting low signals on T1 WI and bright signals on T2 on STIRWI. Maintained vertebral heights with intact vertebral bodies and neural arches. Level by Level analysis: T12-L1: There is no focal disc pathology, spinal canal stenosis, or neural foraminal stenosis. L1-L2: There is no focal disc pathology, spinal canal stenosis, or neural foraminal stenosis. L2-L3: There is no focal disc pathology, spinal canal stenosis, or neural foraminal stenosis. L3-L4: There are 2.5 mm subarticular protrusions compromising subarticular recesses and neural foramina with impingement of the emerging nerve roots. L4-L5: There is a 3.6 mm degenerative spondylolisthesis and a 3.6 mm cranial buckling of the intervening disc indenting the thecal sac, compromising the subarticular recesses. There is moderate spinal canal stenosis and moderate bilateral neural foraminal stenosis with impingement of the emerging nerve roots. There is a foreshortening of the midsagittal AP dimension of the spinal canal (closed arch type of spondylolisthesis) (diagnostic hallmark).extra-articular synovial cyst is seen associating the left facet joints arthropathy. L5-S1: There is a 3.8 mm annular bulge and 8 mm central and right central and subarticular extrusion with caudal migration indenting the thecal sac, compromising the subarticular recesses more on the right side. There is mild central canal stenosis and severe bilateral neural foraminal stenosis with impingement of the emerging nerve roots. Degenerative retrolisthesis buckled ligamenta flava and arthropathic facet joints augment effects. The lower dorsal spinal cord, conus medullaris, and cauda equina nerve roots are unremarkable. Altered signals at the quadratus lumborum and erector spinae muscles exhibiting bright feathery signals on STIRWI consistent with grade one myogenic strain. No developmental canal stenosis. IMPRESSION: 1. Spondylodegenerative lumbar disc disease. 2. Osseous hemangioma and Modic I and II marrow changes. 3. 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 4. There is degenerative spondylolisthesis at the L4-L5 level measuring 3.6 mm. 5. There is degenerative retrolisthesis at the L5-S1 level measuring 4.2 mm. 6. Posteriorly oriented orthostatic subcutaneous edema is seen opposite the lumbar and sacral vertebrae. 7. grade one myogenic strain of the quadratus lumborum and erector spinae muscles. 8. L3-L4: There are 2.5 mm subarticular protrusions. 9. L4-L5: There is a 3.6 mm degenerative spondylolisthesis and a 3.6 mm cranial buckling of the intervening disc. There is a foreshortening of the midsagittal AP dimension of the spinal canal (closed arch type of spondylolisthesis) (diagnostic hallmark). 10. L5-S1: There is a 3.8 mm annular bulge and 8 mm central and right central and subarticular extrusion with caudal migration. 11. Multilevel lumbar disc pathologies at the L3-L4, L4-L5 and L5-S1 levels with effects exerted upon the spinal canal, subarticular recesses, and neural foramina with impingement of the emerging nerve roots. Degenerative spondylolisthesis, retrolisthesis, buckled ligamenta flava, and arthropathic facet joints augment effects. 12. The reported findings explain the current clinical status. Electronically signed by Betsy Schuster 09-12-2024 7:37 PM
[2024-09-13] MEDS: cefTRIAXone SODIUM 1,000 MG/50 ML BAG IV SCH (12:42)
--- NOTE | 2024-09-13 12:50 | Orthopedic Consultation ---
Date of Consultation September 13, 2024 Assessment & Plan (1) Lumbar spinal stenosis: Assessment lumbar spinal stenosis with spondylolisthesis L4-5 and advanced degenerative disc disease L5-S1. Plan I did the opportunity to patient reviewed the patient's MRI and updated x-ray. Lateral flexion-extension views demonstrate grade 1 spondylolisthesis with very minimal anterior listhesis on flexion versus extension. MRI does demonstrate evidence of anterolisthesis L4-5 marked facet operatively and significant stenosis at L4-L5. There is evidence of Modic disease most impressive at the L5-S1 level. I discussed with the patient and her fianc reviewing her imaging and clinical presentation. This point I do not appreciate evidence of radiculopathy or neurogenic claudication based on exam and history. I would be hesitant to recommend any surgical intervention at this time. Would continue with interventional pain management we will see her in the office for review of her progress. History of Present Illness Reason for Consultation: Severe low back pain Attending Physician: Andreia Puente MD History of Present Illness This is a 68-year-old female presents with a history of intermittent bouts of severe lumbar back pain. She denies any pain radiating to the buttocks. Denies any clear radicular component. She describes occasional numbness sensations into her left thigh. This is often related to sitting versus standing and walking. She denies any precipitating trauma fall or event. She does have a history of a lumbar epidural without any significant proven. Physical therapy seems to have exacerbated her symptoms. She presents yesterday with severe pain. Upon my evaluation she is much more comfortable. Allergies Allergy/AdvReac Type Severity Reaction Status Date / Time bee venom protein (honey bee) Allergy Severe EXTREME Verified 09/12/24 09:22 SWELLING AT SITES, EYES TURNED YELLOW dog dander Allergy Intermediate BLOW UP Verified 09/12/24 09:22 ALL OVER hydroxyzine Allergy Intermediate SWOLLEN Verified 09/12/24 09:22 HANDS AND FEET, NAUSEA Iodinated Contrast Media Allergy Intermediate IV SITE Verified 09/12/24 09:22 BUBBLED UP AND HIVES ALL OVER loratadine [From Claritin-D] Allergy Intermediate SWELLING Verified 09/12/24 09:22 AND RED RASH mold Allergy Intermediate BLOWS UP Verified 09/12/24 09:22 WITH SWELLING nickel Allergy Intermediate WELTS Verified 09/12/24 09:22 pseudoephedrine Allergy Intermediate SWELLING Verified 09/12/24 09:22 [From Claritin-D] AND RED RASH shellfish derived Allergy Intermediate DIZZINESS, Verified 09/12/24 09:22 N/V, LOBSTER--RASH, HIVES Sulfa (Sulfonamide Allergy Intermediate SWELLING, Verified 09/12/24 09:22 Antibiotics) RASH bupropion [From Contrave] Allergy Swelling Verified 09/12/24 09:22 of Lip/Tongue/Throat chromium Allergy Unknown Verified 09/12/24 09:22 duloxetine Allergy Unknown Verified 09/12/24 09:22 naltrexone [From Contrave] Allergy Swelling Verified 09/12/24 09:22 of Lip/Tongue/Throat spider venom Allergy Unknown Verified 09/12/24 09:22 gabapentin AdvReac Intermediate BLURRING Verified 09/12/24 09:22 OF VISION nickel Allergy Unknown Uncoded 09/12/24 09:22 Home Medications Medication Instructions Recorded Confirmed Type albuterol sulfate 90 mcg/actuation 2 puff inhalation Q4H PRN 10/01/20 09/12/24 History aerosol inhaler Shortness Of Breath Or Wheezing olopatadine 0.1 % eye drops 1 drp ophthalmic (eye) BID 10/22/23 09/12/24 History (Pataday Twice Daily Relief) tirzepatide (weight loss) 2.5 2.5 mg subcut WK 01/11/24 09/12/24 History mg/0.5 mL subcutaneous pen injector (Zepbound) bromfenac 0.07 % eye drops 1 drp OPB DAILY 06/24/24 09/12/24 History hydrocortisone 5 mg tablet 7.5 mg PO QAM 06/24/24 09/12/24 History cholecalciferol (vitamin D3) 50 100 mcg PO DAILY 07/07/24 09/12/24 History mcg (2,000 unit) capsule mecobalamin (vitamin B12) 1,000 2,000 mcg PO DAILY 07/07/24 09/12/24 History mcg chewable tablet Synthroid 88 mcg tablet 88 mcg PO DAILY #90 tabs 09/08/24 09/12/24 Rx (levothyroxine) fluticasone propionate 110 2 puff inhalation BID 09/12/24 09/12/24 History mcg/actuation HFA aerosol inhaler lidocaine 5 % topical patch 1 patch topical DAILY PRN Back Pain 09/12/24 09/12/24 History pregabalin 50 mg capsule 50 mg PO HS 09/12/24 09/12/24 History Patient History Medical History Depression Asthma Surgical History (Updated 09/13/24 @ 09:55 by Melody Jean PA-C) History of tonsillectomy History of adenoidectomy History of hysterectomy Social History Smoking Status: Never smoker Hx Alcohol Use: No Hx Substance Use: No Preferred Language: 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 She was able to stand and ambulate about the room without difficulty. She has limited lumbar flexion extension. She does not exhibit any significant discomfort to palpation of lumbar musculature. There is no pain over the bilateral SI joints with a negative Dari sign. Sensation is intact. She is able to stand on her toes and heels without difficulty. Results & Data Vital Signs (Past 12 Hours) Vital Signs Temp Pulse Pulse Resp BP Pulse Ox O2 Del Method 09/13/24 11:03 36.5 C 63 16 105/69 97 Room Air 09/13/24 07:57 36.5 C 62 18 96/54 L 96 Room Air 09/13/24 07:10 86 09/13/24 02:48 36.4 C L 62 18 91/57 L 94 Room Air (1) Lumbar spinal stenosis Neurogenic claudication status: unspecified Qualified Code(s): M48.061 - Spinal stenosis, lumbar region without neurogenic claudication
--- NOTE | 2024-09-13 14:13 | Orthopedic Consultation ---
Date of Service September 13, 2024 Assessment & Plan (1) Left knee pain: She was seen and examined by Dr. Pimentel today as well. Her arthritis is fairly mild on xrays today. She recently had injections with her orthopedic provider but this has not helped. We reassured her that she does not need knee surgery. We recommend that she follow up with her orthopedic provider as an outpatient for further management. In the meantime, she is receiving some steroids here which might help her knee, recommend therapy, and adding ketorolac if she's able to have this. History of Present Illness Reason for Consultation: . Requesting Physician: . Attending Physician: Andreia Puente MD . 68 year old patient admitted for spinal stenosis, and has a history of left knee pain. She has been seeing Dr Hayes at [facility]. She has received steroid injections in the past but was diagnosed with secondary adrenal insufficiency and says she was told not to get steroid injections anymore. She had viscosupplementation injections about 2 years ago which really did help her knee for quite awhile. She saw Dr Hayes about a month ago and received a series of 3 injections (viscosupplementation again) but this time it has not helped. She complains of generalized knee pain, swelling, and stiffness. No h/o gout/ps eudogout or knee surgery. Allergies Allergy/AdvReac Type Severity Reaction Status Date / Time bee venom protein (honey bee) Allergy Severe EXTREME Verified 09/12/24 09:22 SWELLING AT SITES, EYES TURNED YELLOW dog dander Allergy Intermediate BLOW UP Verified 09/12/24 09:22 ALL OVER hydroxyzine Allergy Intermediate SWOLLEN Verified 09/12/24 09:22 HANDS AND FEET, NAUSEA Iodinated Contrast Media Allergy Intermediate IV SITE Verified 09/12/24 09:22 BUBBLED UP AND HIVES ALL OVER loratadine [From Claritin-D] Allergy Intermediate SWELLING Verified 09/12/24 09:22 AND RED RASH mold Allergy Intermediate BLOWS UP Verified 09/12/24 09:22 WITH SWELLING nickel Allergy Intermediate WELTS Verified 09/12/24 09:22 pseudoephedrine Allergy Intermediate SWELLING Verified 09/12/24 09:22 [From Claritin-D] AND RED RASH shellfish derived Allergy Intermediate DIZZINESS, Verified 09/12/24 09:22 N/V, LOBSTER--RASH, HIVES Sulfa (Sulfonamide Allergy Intermediate SWELLING, Verified 09/12/24 09:22 Antibiotics) RASH bupropion [From Contrave] Allergy Swelling Verified 09/12/24 09:22 of Lip/Tongue/Throat chromium Allergy Unknown Verified 09/12/24 09:22 duloxetine Allergy Unknown Verified 09/12/24 09:22 naltrexone [From Contrave] Allergy Swelling Verified 09/12/24 09:22 of Lip/Tongue/Throat spider venom Allergy Unknown Verified 09/12/24 09:22 gabapentin AdvReac Intermediate BLURRING Verified 09/12/24 09:22 OF VISION nickel Allergy Unknown Uncoded 09/12/24 09:22 Home Medications Medication Instructions Recorded Confirmed Type albuterol sulfate 90 mcg/actuation 2 puff inhalation Q4H PRN 10/01/20 09/12/24 History aerosol inhaler Shortness Of Breath Or Wheezing olopatadine 0.1 % eye drops 1 drp ophthalmic (eye) BID 10/22/23 09/12/24 History (Pataday Twice Daily Relief) tirzepatide (weight loss) 2.5 2.5 mg subcut WK 01/11/24 09/12/24 History mg/0.5 mL subcutaneous pen injector (Zepbound) bromfenac 0.07 % eye drops 1 drp OPB DAILY 06/24/24 09/12/24 History hydrocortisone 5 mg tablet 7.5 mg PO QAM 06/24/24 09/12/24 History cholecalciferol (vitamin D3) 50 100 mcg PO DAILY 07/07/24 09/12/24 History mcg (2,000 unit) capsule mecobalamin (vitamin B12) 1,000 2,000 mcg PO DAILY 07/07/24 09/12/24 History mcg chewable tablet Synthroid 88 mcg tablet 88 mcg PO DAILY #90 tabs 09/08/24 09/12/24 Rx (levothyroxine) fluticasone propionate 110 2 puff inhalation BID 09/12/24 09/12/24 History mcg/actuation HFA aerosol inhaler lidocaine 5 % topical patch 1 patch topical DAILY PRN Back Pain 09/12/24 09/12/24 History pregabalin 50 mg capsule 50 mg PO HS 09/12/24 09/12/24 History Past Med/Surg History Problem List (Updated 09/13/24 @ 14:10 by Kuldeep Cowan PA-C) Left knee pain Lumbar spinal stenosis Hypoxia Abnormal urinalysis Intractable low back pain Leukocytosis (Acute) Adrenal insufficiency (Acute) Acute UTI (Acute) Hypotension (Acute) Lower back pain (Acute) Overweight (BMI 25.0-29.9) Spinal stenosis care home current use of systemic steroids Secondary adrenal insufficiency Wesley's thyroiditis Chest pain (Acute) Hypothyroid (Chronic) Medical History Depression Asthma Surgical History History of tonsillectomy History of adenoidectomy History of hysterectomy Social History Smoking Status: Never smoker Hx Alcohol Use: No Hx Substance Use: No Preferred Language: Chinese Timber Sizer Required: No Beliefs That Will Affect Care: None marital status: Current Living Situation: Spouse Current Living Situation Comment: home with current occupational status: employed Other Information That Helps Us Care for You: No Feels Safe at Home: Yes Safety Concerns: Feels Safe At This Time Assistive Devices: Glasses and Oxygen - Continuous Assistive Devices Comment: placed on O2 with pain medications in ED Review of Systems All systems reviewed & are unremarkable except as noted in HPI & below. Physical Exam .alert and oriented. NAD Left knee: minimal knee effusion. No erythema or warmth. She has some diffuse tenderness to palpation around the knee. Good range of motion. Able to do straight leg raise. Results & Data Results & Data Laboratory Results . Diagnostic Findings .xrays of the left knee reviewed. No fractures. Minimal arthritic change. PG Care Time/CCT Total # of Minutes Spent Total Time Spent with Patient: Total time spent is greater than 50% in coordination of care (as documented) at patient's floor/unit and/or counseling patient: Coding Level of Care Code 18675 IN/OBS CONSULT LVL 3,45M Diagnoses Left knee pain M25.562
--- NOTE | 2024-09-13 15:07 | Hospitalist Progress Note ---
Date of Service September 13, 2024 Assessment & Plan (1) Intractable low back pain: Plan: Intractable Lower Back Pain, Lumbar Spine Stenosis: Initial laboratory evaluation notable for mild leukocytosis likely 2/2 pain but was otherwise grossly unremarkable. Pain is not yet well-controlled MRI of the lumbar spine showed multilevel spinal stenosis but nothing significant to undergo operative management as per the specialist Appreciate orthospine input and recommendation Appreciate pain management input and recommendation Will advised for PT and OT evaluation Left knee pain Has had injection in the knee joint repeatedly as an outpatient Complains to have ongoing pain Appreciate Ortho input and recommendation Continue with the conservative management and will have follow-up appointment with outpatient orthopedic surgeon (2) Lumbar spinal stenosis: Plan: As above (3) Hypoxia: Plan: Acute Hypoxia Requiring Supplemental O2: Patient was noted to be acutely hypoxic in the ED with O2 sat of 83% on RA; No shortness of breath noted on examination Suspect this was related to IV narcotic use in the ED. She was placed on 4L via NC with good rebound of her O2 sat before being transitioned down to 2L in the ED. She was on 1L via NC at the time of my evaluation around 4PM and saturating well. BioFire has been negative She has been saturating normally on room air and does not have any respiratory symptoms (4) Hypotension: Plan: Relative Hypotension ISO Secondary Adrenal Insufficiency: Patient hypotensive in the ED with BP in the 90s/50s at time of sign-out. S/p 1.5L NSS in the ED. She received a stress dose of IV Solu-Cortef in the ED; BP subsequently improved to 110s/70s. Continue IV Solu-Cortef 50mg Q6H x 3 bags; continuous telemetry monitoring on board, closely watch BP. She can resume home Coref 7.5mg daily tomorrow AM. Patient follows with [facility] End[facility]; patient with secondary adrenal insufficiency due to long-term use of exogenous glucocorticoids -- Planning to taper her off hydrocortisone by late 2023. Hydrocortisone was started in December 2023. Blood pressure is maintaining (5) Secondary adrenal insufficiency: (6) Abnormal urinalysis: Plan: Abnormal Urinalysis, Urinary Incontinence: UA notable for WBC 11-20 without evidence of bacteria. Patient denies any dysuria however she has been experiencing significant urinary incontinence ISO her intractable lower back pain as per above - certainly predisposes her to development of UTI. Will cover with IV Rocephin for now pending urine culture results. Probiotic added on. Has been on intravenous ceftriaxone and await Plan Payton Lai is a 68-year-old female with PMHx significant for hypothyroidism, chronic frontal sinusitis, asthma, fibromyalgia, osteoarthritis, history of migraines, sicca syndrome with keratoconjunctivitis, secondary adrenal insufficiency due to long-term use of exogenous glucocorticoids and other problems listed below who presented to the ED on 09/12/24 for evaluation of intractable lower back pain. Patient with significant lower back pain and BLE neuropathy since last May. Patient had previously received corticosteroid injections into her lower back, pursued outpatient PT and used PRN Tramadol + scheduled Lyrica without any notable relief thus far. Patient had an MRI of her lumbar spine performed as an outpatient back in June of last year which revealed the following: multilevel multifactorial degenerative changes in the lumbar spine (most prominent at L4-5 level where there is moderate to severe spinal canal stenosis), narrowing of the lateral recesses, mild to moderate right and mild left neural foraminal narrowing + moderate right and mild to moderate left L5-S1 foraminal stenosis. Patient reports that she was recently seen by [facility] back in July whom at that time recommended against surgery. Rest of history as per HPI. Other Chronic Medical Conditions: * Osteoarthritis - Patient endorsing pain in L knee, will obtain XR. Hypothyroidism - Continue levothyroxine. TSH 10.80, will check T4. DVT Prophylaxis: SCDs/TEDs for now pending ortho spine evaluation. Code Status: FULL CODE PCP: Em Fleming MD Disposition: Admit to Med/Telemetry for further inpatient evaluation and management. Admission and Anticipated Discharge Date Admission Date: September 12, 2024 Subjective 09/13/2024 The patient was seen and examined in telemetry unit in presence of the significant other She has been complaining of chronic back pain and also chronic left knee pain She has had repeated injection in the left knee at the last 1 did not do any good to it Her back pain is localized without any radiation Review of Systems Review of Systems: All systems reviewed and are unremarkable except as noted below Physical Exam Physical Exam: Sitting on a chair with complains of back pain and also left knee pain Constitutional: well developed, well nourished, + ill appearing and + obese Eyes: PERRL, conjunctivae normal, anicteric sclerae ENMT: external ear and nose normal, oropharynx normal Neck: trachea midline, no thyromegaly Respiratory: + respiratory distress Auscultation: + lungs not clear to auscultation Cardiovascular: Rate/Rhythm: regular rate and regular rhythm; not tachycardic Heart Sounds: normal S1 and normal S2; no murmur Extremities: no edema Gastrointestinal (Abdomen): Inspection/Auscultation: normal bowel sounds; abdomen not distended Percussion/Palpation: abdomen soft; abdomen nontender Musculoskeletal: Minimal tenderness at the lower lumbosacral area. Left knee is minimally swollen without evidence of fluid in the movement is minimally painful Neurologic: normal touch/pain/proprioception and moves all extremities; no focal motor deficits Lymphatic: no cervical or axillary lymphadenopathy Results & Data Results & Data Vital Signs (Past 12 Hours) Vital Signs Temp Pulse Pulse Resp BP Pulse Ox O2 Del Method 09/13/24 11:03 36.5 C 63 16 105/69 97 Room Air 09/13/24 07:57 36.5 C 62 18 96/54 L 96 Room Air 09/13/24 07:10 86 Laboratory Results Short CBC 09/13/24 Range/Units 05:24 WBC 10.82 H (4.8-10.8) K/ul Hgb 11.9 L (12.0-16.0) g/dl Hct 34.9 L (37.0-47.0) % Plt Count 263 (130-400) K/uL BMP 09/13/24 05:24 Sodium 141 Potassium 4.0 Chloride 109 H Carbon Dioxide 27 BUN 12 Creatinine 0.70 Glucose 113 H Calcium 9.0 Medications Administered Current Inpatient Medications Acetaminophen (Acetaminophen 500 Mg Tab) 1,000 mg PO Q8 [facility] Stop: 10/12/24 15:59 Last Admin: 09/13/24 06:28 Dose: 1,000 mg Bisacodyl (Bisacodyl 5 Mg Tabec) 10 mg PO DAILY JACKELINE Stop: 10/13/24 08:59 Last Admin: 09/13/24 09:01 Dose: 10 mg Cyanocobalamin (Cyanocobalamin (B-12) 500 Mcg Tablet) 2,000 mcg PO DAILY [facility] Stop: 10/13/24 08:59 Last Admin: 09/13/24 08:20 Dose: 2,000 mcg Diclofenac Sodium (Diclofenac Sod 1% Gel 100 Gm Tube) 2 gm EXT BID [facility]; Protocol Stop: 10/12/24 20:59 Last Admin: 09/13/24 09:01 Dose: 2 gm Fluticasone Furoate (Fluticasone Furoate 200mcg 14 Puffs/Inhaler) 1 [facility] Stop: 10/13/24 08:59 Last Admin: 09/13/24 08:19 Dose: 1 puffs Hydrocortisone (Hydrocortisone 10 Mg Tab) 7.5 mg PO QAM [facility] Stop: 10/13/24 08:59 Last Admin: 09/13/24 08:20 Dose: 7.5 mg Hydromorphone HCl (Hydromorphone Inj 0.5 Mg/0.5 Ml Syr) 0.5 mg IV Q3H PRN PRN Reason: Severe Pain (Scale 7, 8, 9,10) Stop: 09/26/24 15:10 Last Admin: 09/12/24 18:37 Dose: 0.5 mg Ceftriaxone Sodium (Rocephin) 1,000 mg in 50 mls @ 100 mls/hr IV Q24H [facility] Stop: 09/18/24 10:59 Last Infusion: 09/13/24 13:18 Dose: Infused Lactobacillus Acidophilus (Advanced Probiotic 625 Mg Capsule) 1,250 mg PO DAILY [facility] Stop: 10/12/24 17:59 Last Admin: 09/13/24 08:20 Dose: 1,250 mg Levothyroxine Sodium (Levothyroxine Sodium 88 Mcg Tablet) [facility] Stop: 10/13/24 06:29 Last Admin: 09/13/24 05:45 Dose: 88 mcg Miscellaneous (Remove Lidoderm Patch) 1 each N/A DAILY@2100 [facility] Stop: 10/12/24 20:59 Last Admin: 09/12/24 20:16 Dose: 1 each Ondansetron HCl (Ondansetron Inj 2 Mg/Ml 2 Ml Vial) 4 mg IV Q4H PRN PRN Reason: Nausea And Vomiting Stop: 10/12/24 15:10 Oxycodone HCl (Oxycodone Hcl Ir 5 Mg Tab (Immediate Release)) 5 mg PO Q6H PRN PRN Reason: Moderate Pain (Scale 4, 5, 6) Stop: 09/26/24 15:10 Polyethylene Glycol (Polyethylene (Miralax) 17 Gm Pack) 17 gm PO DAILY [facility] Stop: 10/13/24 08:59 Last Admin: 09/13/24 09:00 Dose: 17 gm Pregabalin (Pregabalin 50 Mg Cap) 50 mg PO HS JACKELINE Stop: 10/12/24 20:59 Last Admin: 09/12/24 20:15 Dose: 50 mg Tizanidine HCl (Tizanidine Hcl 4 Mg Tablet) 4 mg PO TID JACKELINE Stop: 10/13/24 13:59 Vitamin D (Cholecalciferol 25 Mcg (1000 Units) Tab) 100 mcg PO DAILY JACKELINE Stop: 10/13/24 08:59 Last Admin: 09/13/24 08:20 Dose: 100 mcg (2) Lumbar spinal stenosis Neurogenic claudication status: unspecified Qualified Code(s): M48.061 - Spinal stenosis, lumbar region without neurogenic claudication (4) Hypotension Hypotension type: unspecified hypotension type Qualified Code(s): I95.9 - Hypotension, unspecified
[2024-09-13] MEDS: tiZANidine HCL 4 MG TABLET PO SCH (15:14)
[2024-09-13] MEDS: SODIUM CHLORIDE 0.9% 1,000 ML IV ONE (22:30)
[2024-09-13 22:55] LABS: Hematocrit (blood only) 31.4 % (37.0-47.0); Hemoglobin 10.8 g/dl (12.0-16.0)
[2024-09-14] MEDS: dexAMETHasone 4 MG in SYRINGE 0 ML IV ONE (00:37)
[2024-09-14] MEDS ORDERED: LORazepam 0.5 MG TAB PO PRN (03:10)
[2024-09-14 07:45] VITALS: O2SAT 97
--- NOTE | 2024-09-14 10:56 | Hospitalist Progress Note ---
Date of Service September 14, 2024 Assessment & Plan (1) Intractable low back pain: Plan: Intractable Lower Back Pain, Lumbar Spine Stenosis: Initial laboratory evaluation notable for mild leukocytosis likely 2/2 pain but was otherwise grossly unremarkable. Pain is not yet well-controlled MRI of the lumbar spine showed multilevel spinal stenosis but nothing significant to undergo operative management as per the specialist Appreciate orthospine input and recommendation Appreciate pain management input and recommendation Will advised for PT and OT evaluation She has had PT OT evaluation and recommended home She has been moving around in the hallway without any difficulties and the pain seems to be reasonably controlled with current medications She will be discharged home this afternoon Left knee pain Has had injection in the knee joint repeatedly as an outpatient Complains to have ongoing pain Appreciate Ortho input and recommendation Continue with the conservative management and will have follow-up appointment with outpatient orthopedic surgeon She will have an appointment with her orthopedic surgeon as an outpatient within 3 to 4 weeks (2) Lumbar spinal stenosis: Plan: As above (3) Hypoxia: Plan: Acute Hypoxia Requiring Supplemental O2: Patient was noted to be acutely hypoxic in the ED with O2 sat of 83% on RA; No shortness of breath noted on examination Suspect this was related to IV narcotic use in the ED. She was placed on 4L via NC with good rebound of her O2 sat before being transitioned down to 2L in the ED. She was on 1L via NC at the time of my evaluation around 4PM and saturating well. BioFire has been negative She has been saturating normally on room air and does not have any respiratory symptoms She does not have any respiratory symptoms (4) Hypotension: Plan: Relative Hypotension ISO Secondary Adrenal Insufficiency: Patient hypotensive in the ED with BP in the 90s/50s at time of sign-out. S/p 1.5L NSS in the ED. She received a stress dose of IV Solu-Cortef in the ED; BP subsequently improved to 110s/70s. Continue IV Solu-Cortef 50mg Q6H x 3 bags; continuous telemetry monitoring on board, closely watch BP. She can resume home Coref 7.5mg daily tomorrow AM. Patient follows with [facility] End[facility]; patient with secondary adrenal insufficiency due to long-term use of exogenous glucocorticoids -- Planning to taper her off hydrocortisone by late 2023. Hydrocortisone was started in December 2023. Blood pressure is maintaining Her blood pressure is controlled and she was advised to drink more fluid and will have an appointment with the bog cutter as an outpatient (5) Secondary adrenal insufficiency: (6) Abnormal urinalysis: Plan: Abnormal Urinalysis, Urinary Incontinence: UA notable for WBC 11-20 without evidence of bacteria. Patient denies any dysuria however she has been experiencing significant urinary incontinence ISO her intractable lower back pain as per above - certainly predisposes her to development of UTI. Will cover with IV Rocephin for now pending urine culture results. Probiotic added on. Has been on intravenous ceftriaxone and await Repeat urine culture is negative for any infection and will discontinue antibiotic Plan Payton Lai is a 68-year-old female with PMHx significant for hypothyroidism, chronic frontal sinusitis, asthma, fibromyalgia, osteoarthritis, history of migraines, sicca syndrome with keratoconjunctivitis, secondary adrenal insufficiency due to long-term use of exogenous glucocorticoids and other problems listed below who presented to the ED on 09/12/24 for evaluation of intractable lower back pain. Patient with significant lower back pain and BLE neuropathy since last May. Patient had previously received corticosteroid injections into her lower back, pursued outpatient PT and used PRN Tramadol + scheduled Lyrica without any notable relief thus far. Patient had an MRI of her lumbar spine performed as an outpatient back in June of last year which revealed the following: multilevel multifactorial degenerative changes in the lumbar spine (most prominent at L4-5 level where there is moderate to severe spinal canal stenosis), narrowing of the lateral recesses, mild to moderate right and mild left neural foraminal narrowing + moderate right and mild to moderate left L5-S1 foraminal stenosis. Patient reports that she was recently seen by [facility] back in July whom at that time recommended against surgery. Rest of history as per HPI. Other Chronic Medical Conditions: * Osteoarthritis - Patient endorsing pain in L knee, will obtain XR. Hypothyroidism - Continue levothyroxine. TSH 10.80, will check T4. DVT Prophylaxis: SCDs/TEDs for now pending ortho spine evaluation. Code Status: FULL CODE PCP: Em Fleming MD Disposition: Admit to Med/Telemetry for further inpatient evaluation and management. Admission and Anticipated Discharge Date Admission Date: September 12, 2024 Subjective 09/13/2024 The patient was seen and examined in telemetry unit in presence of the significant other She has been complaining of chronic back pain and also chronic left knee pain She has had repeated injection in the left knee at the last 1 did not do any good to it Her back pain is localized without any radiation 09/14/2024 The patient was seen and examined in the telemetry unit She has had an attack of anxiety last night but has been feeling a lot better this morning Her back pain and knee pain is reasonably controlled She will be discharged home this afternoon Review of Systems Review of Systems: All systems reviewed and are unremarkable except as noted below Physical Exam Physical Exam: Sitting on a chair with complains of back pain and also left knee pain Constitutional: well developed, well nourished, + ill appearing and + obese Eyes: PERRL, conjunctivae normal, anicteric sclerae ENMT: external ear and nose normal, oropharynx normal Neck: trachea midline, no thyromegaly Respiratory: + respiratory distress Auscultation: + lungs not clear to auscultation Cardiovascular: Rate/Rhythm: regular rate and regular rhythm; not tachycardic Heart Sounds: normal S1 and normal S2; no murmur Extremities: no edema Gastrointestinal (Abdomen): Inspection/Auscultation: normal bowel sounds; abdomen not distended Percussion/Palpation: abdomen soft; abdomen nontender Neurologic: normal touch/pain/proprioception and moves all extremities; no focal motor deficits Lymphatic: no cervical or axillary lymphadenopathy Results & Data Results & Data Vital Signs (Past 12 Hours) Vital Signs Temp Pulse Pulse Resp BP BP Pulse Ox 09/14/24 07:44 36.7 C 68 16 107/67 97 09/14/24 07:00 66 09/14/24 03:08 36.6 C 66 18 103/68 98 09/14/24 00:01 87/55 L 09/13/24 23:58 85/47 L O2 Del Method 09/14/24 07:44 Room Air 09/14/24 07:00 09/14/24 03:08 Room Air 09/14/24 00:01 09/13/24 23:58 Laboratory Results Short CBC 09/13/24 Range/Units 22:39 Hgb 10.8 L (12.0-16.0) g/dl Hct 31.4 L (37.0-47.0) % Medications Administered Current Inpatient Medications Acetaminophen (Acetaminophen 500 Mg Tab) 1,000 mg PO Q8 JACKELINE Stop: 10/12/24 15:59 Last Admin: 01/16/25 06:31 Dose: 1,000 mg Bisacodyl (Bisacodyl 5 Mg Tabec) 10 mg PO DAILY [facility] Stop: 10/13/24 08:59 Last Admin: 09/14/24 08:54 Dose: 10 mg Cyanocobalamin (Cyanocobalamin (B-12) 500 Mcg Tablet) 2,000 mcg PO DAILY [facility] Stop: 10/13/24 08:59 Last Admin: 09/14/24 08:48 Dose: 2,000 mcg Diclofenac Sodium (Diclofenac Sod 1% Gel 100 Gm Tube) 2 gm EXT BID [facility]; Protocol Stop: 10/12/24 20:59 Last Admin: 09/14/24 08:49 Dose: 2 gm Fluticasone Furoate (Fluticasone Furoate 200mcg 14 Puffs/Inhaler) 1 puffs INH QAM [facility] Stop: 10/13/24 08:59 Last Admin: 09/14/24 08:49 Dose: 1 puffs Hydrocortisone (Hydrocortisone 10 Mg Tab) 7.5 mg PO QAM [facility] Stop: 10/13/24 08:59 Last Admin: 09/14/24 08:48 Dose: 7.5 mg Hydromorphone HCl (Hydromorphone Inj 0.5 Mg/0.5 Ml Syr) 0.5 mg IV Q3H PRN PRN Reason: Severe Pain (Scale 7, 8, 9,10) Stop: 09/26/24 15:10 Last Admin: 09/13/24 19:52 Dose: 0.5 mg Ceftriaxone Sodium (Rocephin) 1,000 mg in 50 mls @ 100 mls/hr IV Q24H [facility] Stop: 09/18/24 10:59 Last Infusion: 09/13/24 13:18 Dose: Infused Lactobacillus Acidophilus (Advanced Probiotic 625 Mg Capsule) 1,250 mg PO DAILY [facility] Stop: 10/12/24 17:59 Last Admin: 09/14/24 08:47 Dose: 1,250 mg Levothyroxine Sodium (Levothyroxine Sodium 88 Mcg Tablet) 88 mcg PO DAILYBB [facility] Stop: 10/13/24 06:29 Last Admin: 09/14/24 06:31 Dose: 88 mcg Lorazepam (Lorazepam 0.5 Mg Tab) 0.5 mg PO TID PRN PRN Reason: Anxiety Stop: 10/14/24 03:09 Miscellaneous (Remove Lidoderm Patch) 1 each N/A DAILY@2100 [facility] Stop: 10/12/24 20:59 Last Admin: 09/13/24 21:04 Dose: 1 each Ondansetron HCl (Ondansetron Inj 2 Mg/Ml 2 Ml Vial) 4 mg IV Q4H PRN PRN Reason: Nausea And Vomiting Stop: 10/12/24 15:10 Oxycodone HCl (Oxycodone Hcl Ir 5 Mg Tab (Immediate Release)) 5 mg PO Q6H PRN PRN Reason: Moderate Pain (Scale 4, 5, 6) Stop: 09/26/24 15:10 Polyethylene Glycol (Polyethylene (Miralax) 17 Gm Pack) 17 gm PO DAILY [facility] Stop: 10/13/24 08:59 Last Admin: 09/14/24 08:54 Dose: 17 gm Pregabalin (Pregabalin 50 Mg Cap) 50 mg PO HS [facility] Stop: 10/12/24 20:59 Last Admin: 09/13/24 21:02 Dose: 50 mg Tizanidine HCl (Tizanidine Hcl 4 Mg Tablet) 4 mg PO TID [facility] Stop: 10/13/24 13:59 Last Admin: 09/14/24 10:47 Dose: 4 mg Vitamin D (Cholecalciferol 25 Mcg (1000 Units) Tab) 100 mcg PO DAILY [facility] Stop: 10/13/24 08:59 Last Admin: 09/14/24 08:47 Dose: 100 mcg (2) Lumbar spinal stenosis Neurogenic claudication status: unspecified Qualified Code(s): M48.061 - Spinal stenosis, lumbar region without neurogenic claudication (4) Hypotension Hypotension type: unspecified hypotension type Qualified Code(s): I95.9 - Hypotension, unspecified
[2024-09-14 12:12] VITALS: PULSE 66; RESP 18; TEMP 97.9
[2024-09-14 13:59] VITALS: BP 103/68
--- NOTE | 2024-09-15 07:49 | Discharge Summary ---
Date of Service September 15, 2024 Admission HPI Per Admitting Provider Payton Lai is a 68-year-old female with PMHx significant for hypothyroidism, chronic frontal sinusitis, asthma, fibromyalgia, history of migraines, sicca syndrome with keratoconjunctivitis, secondary adrenal insufficiency due to long- term use of exogenous glucocorticoids and other problems listed below who presented to the ED on 09/12/24 for evaluation of intractable lower back pain. History obtained from the patient, discussion with ED provider and associated chart review. Patient with significant lower back pain since last May. Patient had previously been receiving corticosteroid injections into her lower back without any significant relief. Patient had an MRI of her lumbar spine performed as an outpatient back in June last year which revealed the following: multilevel multifactorial degenerative changes in the lumbar spine (most prominent at L4-5 level where there is moderate to severe spinal canal stenosis), narrowing of the lateral recesses, mild to moderate right and mild left neural foraminal narrowing + moderate right and mild to moderate left L5-S1 foraminal stenosis. Patient reports that she was recently seen by [facility] back in July who at that time recommended against surgery. Patient was enrolled with outpatient physical therapy without much improvement in her overall mobility. Patient has been taking PRN tramadol at home to help with her pain which seems to only work for a short amount of time, maybe a few hours at best she mentions. Patient was recently started on Lyrica by her PCP which she has not noticed a significant change with however she has only been on this medication for a few days. Patient does have a history of urinary incontinence however she does report that her incontinence issues seem to be a bit worse since her back pain has been progressively worsened. She did have a bladder scan performed in the ED with 0cc of PVR. No reported fecal incontinence. No recent fevers, chills or bod y aches. No recent falls or trauma. She does endorse significant osteoarthritic pain in both of her knees (L > R) which had been getting corticosteroid injections for in the past. Patient had to stop receiving corticosteroid injections secondary to her adrenal insufficiency. She does report get knee gel injections in the past which provided her with short-term relief. She has issues with mobility at baseline because her osteoarthritis. However, over the past week, her ambulatory function status has drastically declined as her lower back pain has progressively worsened. Patient did have some dry heaving this morning prior to presenting to the ED however this has since resolved. No reported episodes of vomiting. Patient reports it took her an hour to get dressed this morning in order to come to the ED due to her back pain significantly limiting her mobility. Patient reports her lower back pain feels like a tightness however she does experience sharp twinges of pain intermittently that feel like "shocks." She has also been experiencing some numbness and tingling in her BLE, typically her LLE is worse than her RLE. Admission Exam Per Admitting Provider VS noted and reviewed oriented X 3, not in distress, speaks in sentences with no effort nor accessory muscle use normal rate, regular rhythm, no murmurs clear breath sounds bilaterally non distended, soft, nontender no bipedal edema, erythema, warmth Positive straight leg test on the left no neuro deficits Principal Diagnosis Intractable back pain, left knee pain Discharge Exam Sitting on a chair with complains of back pain and also left knee pain Constitutional well developed, well nourished, + ill appearing and + obese Eyes PERRL, conjunctivae normal, anicteric sclerae ENMT external ear and nose normal, oropharynx normal Neck trachea midline, no thyromegaly Respiratory + respiratory distress Auscultation: + lungs not clear to auscultation Cardiovascular Rate/Rhythm: regular rate and regular rhythm; not tachycardic Heart Sounds: normal S1 and normal S2; no murmur Extremities: no edema Gastrointestinal (Abdomen) Inspection/Auscultation: normal bowel sounds; abdomen not distended Percussion/Palpation: abdomen soft; abdomen nontender Neurologic normal touch/pain/proprioception and moves all extremities; no focal motor deficits Lymphatic no cervical or axillary lymphadenopathy Discharge Data Allergies Allergy/AdvReac Type Severity Reaction Status Date / Time bee venom protein (honey bee) Allergy Severe EXTREME Verified 09/12/24 09:22 SWELLING AT SITES, EYES TURNED YELLOW dog dander Allergy Intermediate BLOW UP Verified 09/12/24 09:22 ALL OVER hydroxyzine Allergy Intermediate SWOLLEN Verified 09/12/24 09:22 HANDS AND FEET, NAUSEA Iodinated Contrast Media Allergy Intermediate IV SITE Verified 09/12/24 09:22 BUBBLED UP AND HIVES ALL OVER loratadine [From Claritin-D] Allergy Intermediate SWELLING Verified 09/12/24 09:22 AND RED RASH mold Allergy Intermediate BLOWS UP Verified 09/12/24 09:22 WITH SWELLING nickel Allergy Intermediate WELTS Verified 09/12/24 09:22 pseudoephedrine Allergy Intermediate SWELLING Verified 09/12/24 09:22 [From Claritin-D] AND RED RASH shellfish derived Allergy Intermediate DIZZINESS, Verified 09/12/24 09:22 N/V, LOBSTER--RASH, HIVES Sulfa (Sulfonamide Allergy Intermediate SWELLING, Verified 09/12/24 09:22 Antibiotics) RASH bupropion [From Contrave] Allergy Swelling Verified 09/12/24 09:22 of Lip/Tongue/Throat chromium Allergy Unknown Verified 09/12/24 09:22 duloxetine Allergy Unknown Verified 09/12/24 09:22 naltrexone [From Contrave] Allergy Swelling Verified 09/12/24 09:22 of Lip/Tongue/Throat spider venom Allergy Unknown Verified 09/12/24 09:22 gabapentin AdvReac Intermediate BLURRING Verified 09/12/24 09:22 OF VISION nickel Allergy Unknown Uncoded 09/12/24 09:22 Consultations 09/12/24 13:37 ED Decision to Admit Stat 09/12/24 13:50 Consult Orthopedic Spine Surgery Routine Consult Pain Management Routine 09/13/24 10:28 Consult Orthopedic Surgery Routine Ordered Studies 09/12/24 13:50 MRI Lumbar Spine [MR lumbar spine wo con] Stat Hospital Course (1) Intractable low back pain: Intractable Lower Back Pain, Lumbar Spine Stenosis: Initial laboratory evaluation notable for mild leukocytosis likely 2/2 pain but was otherwise grossly unremarkable. Pain is not yet well-controlled MRI of the lumbar spine showed multilevel spinal stenosis but nothing significant to undergo operative management as per the specialist Appreciate orthospine input and recommendation Appreciate pain management input and recommendation Will advised for PT and OT evaluation She has had PT OT evaluation and recommended home She has been moving around in the hallway without any difficulties and the pain seems to be reasonably controlled with current medications She will be discharged home this afternoon Left knee pain Has had injection in the knee joint repeatedly as an outpatient Complains to have ongoing pain Appreciate Ortho input and recommendation Continue with the conservative management and will have follow-up appointment with outpatient orthopedic surgeon She will have an appointment with her orthopedic surgeon as an outpatient within 3 to 4 weeks (2) Lumbar spinal stenosis: As above (3) Hypoxia: Acute Hypoxia Requiring Supplemental O2: Patient was noted to be acutely hypoxic in the ED with O2 sat of 83% on RA; No shortness of breath noted on examination Suspect this was related to IV narcotic use in the ED. She was placed on 4L via NC with good rebound of her O2 sat before being transitioned down to 2L in the ED. She was on 1L via NC at the time of my evaluation around 4PM and saturating well. BioFire has been negative She has been saturating normally on room air and does not have any respiratory symptoms She does not have any respiratory symptoms (4) Hypotension: Relative Hypotension ISO Secondary Adrenal Insufficiency: Patient hypotensive in the ED with BP in the 90s/50s at time of sign-out. S/p 1.5L NSS in the ED. She received a stress dose of IV Solu-Cortef in the ED; BP subsequently improved to 110s/70s. Continue IV Solu-Cortef 50mg Q6H x 3 bags; continuous telemetry monitoring on board, closely watch BP. She can resume home Coref 7.5mg daily tomorrow AM. Patient follows with [facility]; patient with secondary adrenal insufficiency due to long-term use of exogenous glucocorticoids -- Planning to taper her off hydrocortisone by late 2023. Hydrocortisone was started in December 2023. Blood pressure is maintaining Her blood pressure is controlled and she was advised to drink more fluid and will have an appointment with the reliability technologist as an outpatient (5) Secondary adrenal insufficiency: (6) Abnormal urinalysis: Abnormal Urinalysis, Urinary Incontinence: UA notable for WBC 11-20 without evidence of bacteria. Patient denies any dysuri a however she has been experiencing significant urinary incontinence ISO her intractable lower back pain as per above - certainly predisposes her to development of UTI. Will cover with IV Rocephin for now pending urine culture results. Probiotic added on. Has been on intravenous ceftriaxone and await Repeat urine culture is negative for any infection and will discontinue antibiotic Plan Payton Lai is a 68-year-old female with PMHx significant for hypothyroidism, chronic frontal sinusitis, asthma, fibromyalgia, osteoarthritis, history of migr aines, sicca syndrome with keratoconjunctivitis, secondary adrenal insufficiency due to long-term use of exogenous glucocorticoids and other problems listed below who presented to the ED on 09/12/24 for evaluation of intractable lower back pain. Patient with significant lower back pain and BLE neuropathy since last May. Patient had previously received corticosteroid injections into her lower back, pursued outpatient PT and used PRN Tramadol + scheduled Lyrica without any notable relief thus far. Patient had an MRI of her lumbar spine performed as an outpatient back in June of last year which revealed the following: multilevel multifactorial degenerative changes in the lumbar spine (most prominent at L4-5 level where there is moderate to severe spinal canal stenosis), narrowing of the lateral recesses, mild to moderate right and mild left neural foraminal narrowing + moderate right and mild to moderate left L5-S1 foraminal stenosis. Patient reports that she was recently seen by [facility] back in July whom at that time recommended against surgery. Rest of history as per HPI. Other Chronic Medical Conditions: * Osteoarthritis - Patient endorsing pain in L knee, will obtain XR. Hypothyroidism - Continue levothyroxine. TSH 10.80, will check T4. DVT Prophylaxis: SCDs/TEDs for now pending ortho spine evaluation. Code Status: FULL CODE PCP: Em Fleming MD Disposition: Admit to Med/Telemetry for further inpatient evaluation and manage ment. Total Time Total Time Spent Total Time Spent (In Minutes): 35 minutes Discharge Plan Discharge Items Patient Disposition: Home - Self-Care Reason For Visit: BACK INJURY, PAIN Discharge Diagnosis: Intractable back pain, left knee pain Condition on Discharge: Fair Activity: Resume your previous activity Non-emergency contact: Primary Care Provider Call non-emergency contact if: you have any medication questions and your symptoms worsen Follow-up/Referrals: Em Fleming MD [Primary Care Provider] - 09/19/24 2:20 pm (Date & Time 09/19/2024 2:20 PM Provider: Em Fleming MD General Internal Medicine [facility] ) Diet: Regular Addtl Attending Provider Instructions: please take precaution to avoid falls Please take your medications as advised Try to take nonnarcotic pain medications like ibuprofen/Motrin for pain control Try to use less of narcotic pain medications to avoid confusion, constipation, addiction Please try to make an appointment with your orthopedic surgeon in 3 to 4 weeks Pending Studies at Discharge: No Stand-Alone Forms: [employer], Smoking Cessation Medications and DC Order Prescriptions: New tizanidine 4 mg Tablet 4 mg PO TID Qty: 30 0RF oxycodone 5 mg Tablet 5 mg PO Q6H PRN (Reason: pain) Qty: 20 0RF diclofenac sodium [Voltaren Arthritis Pain] 1 % Gel 2 g EXT BID Qty: 50 0RF Continued levothyroxine [Synthroid] 88 mcg tablet 88 mcg PO DAILY Qty: 90 3RF Rx Instructions: BRAND NECESSARY olopatadine [Pataday Twice Daily Relief] 0.1 % drops 1 drp ophthalmic (eye) BID Rx Instructions: separate doses by at least 6-8 hours Zepbound 2.5 mg/0.5 mL pen injector 2.5 mg subcut WK Rx Instructions: Fridays mecobalamin (vitamin B12) 1,000 mcg tablet,chewable 2,000 mcg PO DAILY cholecalciferol (vitamin D3) 50 mcg (2,000 unit) capsule 100 mcg PO DAILY albuterol sulfate 90 mcg/actuation Hfa Aerosol Inhaler 2 puff INHALATION Q4H PRN (Reason: Shortness Of Breath Or Wheezing) hydrocortisone 5 mg tablet 7.5 mg PO QAM Rx Instructions: May double in times of stress or illness; bromfenac 0.07 % drops 1 drp OPB DAILY fluticasone propionate 110 mcg/actuation HFA aerosol inhaler 2 puff INHALATION BID pregabalin 50 mg capsule 50 mg PO HS lidocaine 5 % adhesive patch,medicated 1 patch topical DAILY PRN (Reason: Back Pain) Discharge Orders: Discharge Order (Routine); Ordered 09/14/24 Ordered By: Andreia Puente Admission Data Admit Date/Time: 09/12/24 13:50 Attending Provider: Andreia Puente Admit Provider: Alfredo Perry Primary Care Provider: Em Fleming Other Providers: Isma Dumont Upendra; Kiran Pimentel Other Interventions: Discharge Summary Assessment (RN) Last Done: 09/14/24 13:57
--- NOTE | 2024-09-15 21:39 | Electrocardiogram Report ---
Test Reason : Blood Pressure : */* mmHG Vent. Rate : 65 BPM Atrial Rate : 65 BPM P-R Int : 176 ms QRS Dur : 72 ms QT Int : 414 ms P-R-T Axes : 49 -1 39 degrees QTcB Int : 430 ms Normal sinus rhythm Low voltage QRS Borderline ECG When compared with ECG of 25-Jul-2024 05:05, No significant change was found Confirmed by Addison Santos ([id number]) on 09/15/2024 9:39:23 PM Referred By: REFERRED SELF Confirmed By: Addison Santos
== END 2024-09-14 14:55 | disposition home or self-care (01) | DRG 552 ==
LOC: ED 07:23 → SUATTDRO 13:50 → 2S 13:50
DX: Z88.2 Allergy status to sulfonamides; M79.7 Fibromyalgia; J45.909 Unspecified asthma, uncomplicated; M99.73 Connective tissue and disc stenosis of intervertebral foramina of lumbar region; M47.816 Spondylosis without myelopathy or radiculopathy, lumbar region; Z88.8 Allergy status to other drugs, medicaments and biological substances; G62.9 Polyneuropathy, unspecified; R09.02 Hypoxemia; Z91.048 Other nonmedicinal substance allergy status; Z79.899 Other long term (current) drug therapy; Z91.041 Radiographic dye allergy status; Z86.69 Personal history of other diseases of the nervous system and sense organs; R82.998 Other abnormal findings in urine; M43.16 Spondylolisthesis, lumbar region; Z79.890 Hormone replacement therapy; E03.9 Hypothyroidism, unspecified; E27.40 Unspecified adrenocortical insufficiency; T40.605A Adverse effect of unspecified narcotics, initial encounter; F32.A Depression, unspecified; Z91.030 Bee allergy status; T38.0X5A Adverse effect of glucocorticoids and synthetic analogues, initial encounter; M48.061 Spinal stenosis, lumbar region without neurogenic claudication; M17.0 Bilateral primary osteoarthritis of knee; R32 Unspecified urinary incontinence; Z91.013 Allergy to seafood; I95.9 Hypotension, unspecified